=== PATIENT | male | born 1950 | race Caucasian/White ===

== ENCOUNTER → 2018-03-27 14:39 | Outpatient (CLI) | payer MEDICARE, SELFPAY ==
--- NOTE | 2018-03-27 | DI.RAD.S_ITS ---
PROCEDURE: XR WRIST RT MIN 3V INDICATIONS: RT WRIST PAIN, RT GREAT TOE PAIN TECHNIQUE: 3 views of the wrist were acquired. COMPARISON: [facility], , WRIST MINIMUM 3 VIEWS RIGHT, 05/07/2016, 10:11. FINDINGS: Bones: No fractures or dislocations. No suspicious bony lesions. Carpal degeneration. Severe triscaphe joint degeneration. Severe first MCP degenerative joint disease. Soft tissues: No suspicious soft tissue calcifications. IMPRESSION: Diffuse right wrist joint degeneration, grossly unchanged. Dictated by: Damien Sanchez M.D. on 03/27/2018 at 17:10 Approved by: Damien Sanchez M.D. on 03/27/2018 at 17:12
--- NOTE | 2018-03-27 | DI.RAD.S_ITS ---
PROCEDURE: XR TOE RT MIN 2V INDICATIONS: RT WRIST PAIN, RT GREAT TOE PAIN TECHNIQUE: 3 views of the right toe(s) acquired. COMPARISON: None. FINDINGS: Bones: No fractures or dislocations. No suspicious bony lesions. Severe first MTP joint degeneration. Chronic osseous bunion. Overlying soft tissue swelling. There is hallux valgus appearance all weight-bearing views would be more specific. IMPRESSION: Hallux valgus although consider further evaluation with weight bearing views. Severe first MTP joint degeneration. Dictated by: Damien Sanchez M.D. on 03/27/2018 at 17:12 Approved by: Damien Sanchez M.D. on 03/27/2018 at 17:15
== END ==
PROVIDERS: PCP Family Medicine; Visit Provider Family Medicine
DX: M25.531 Pain in right wrist (principal); M79.674 Pain in right toe(s); M19.031 Primary osteoarthritis, right wrist; M19.071 Primary osteoarthritis, right ankle and foot; M21.611 Bunion of right foot
CPT/HCPCS: 73110; 73660

== ENCOUNTER → 2019-03-11 12:40 | Outpatient (CLI) | payer MEDICARE, SELFPAY ==
--- NOTE | 2019-03-11 | DI.RAD.S_ITS ---
PROCEDURE: XR CHEST 2V INDICATIONS: COUGH TECHNIQUE: 2 views of the chest were acquired. COMPARISON: Merged With [facility], , CHEST 2 VIEW, 05/15/2014, 18:23. FINDINGS: Surgical changes and devices: None. Lungs and pleura: Lungs are clear. Minimal retrocardiac streaky opacities unchanged and favored to represent atelectasis. No pleural effusions or pneumothorax. Mediastinum: Mediastinal contours are normal. Heart size is normal. Bones and chest wall: No suspicious bony abnormalities. Soft tissues appear unremarkable. IMPRESSION: No consolidation identified to suggest pneumonia. Dictated by: Davide Palencia M.D. on 03/11/2019 at 14:11 Approved by: Davide Palencia M.D. on 03/11/2019 at 14:13
== END ==
PROVIDERS: PCP Family Medicine; Referring Provider Family Medicine; Visit Provider Family Medicine
DX: R05 Cough (principal)
CPT/HCPCS: 71046

== ENCOUNTER 2019-03-19 06:51 | Day surgery (SDC) | payer MEDICARE, SELFPAY ==
[2019-03-19 07:18] VITALS: BP 163/84; PULSE 58; RESP 16; TEMP 36.6; O2SAT 97; BMI 27.7
[2019-03-19] MEDS: PROPARACAINE 0.5% OPHTH SOL 2 DROPS EYE-OP (07:27)
[2019-03-19] MEDS: CATARACT EYE COMPOUND (10 DROPS/SYRINGE) 3 DROPS EYE-OP (07:33)
--- NOTE | 2019-03-19 08:07 | PM.PREOP ---
Pre-operative Note Interval Note History & Physical reviewed/Exam performed by Physician: No Changes to H&P: No
--- NOTE | 2019-03-19 08:08 | PM.OP.1 ---
Operative Date/Time/Diagnoses Pre-op diagnosis: Nuclear cataract right eye Procedure & Clinicians Procedure: Cataract Surgery Same procedure as scheduled: Yes Surgeon: Jose Du Anesthesia Type: MAC +/- and Sedation Operative Notes Procedure in detail: Patient brought to the operating suite. Tetracaine drops placed in the right eye. Patient was prepped and draped in sterile manner. Wire lid speculum was placed in the eye. Betadine drops were placed on the eye. This was irrigated. Lidocaine jelly was placed on the eye. A paracentesis port was created with a side-port blade. 0.1 mL 1% preservative free lidocaine was injected into the anterior chamber. The anterior chamber was deepened with viscoelastic. 2.6 mm keratome was used to create a temporal clear corneal incision. Cystotome and Utrata forceps were used to create continuous tear capsulorrhexis. Balanced salt solution was used to hydro dissect the nucleus. The phacoemulsification handpiece was inserted and the nucleus was removed using the stop and chop technique. The irrigation aspiration handpiece was inserted and the remaining cortex was removed. Anterior chamber was deepened with viscoelastic. An Church ZCB00 intraocular lens with a power of 24.5 was injected into the capsular bag. Irrigation aspiration handpiece was inserted and the remaining viscoelastic was removed. Incision was hydrated with balanced salt solution and found to be leak free with pressure with Weck-Nadine sponges. 0.1 mL Vigamox injected anterior chamber. 0.3 mL Kenalog 10 mg was injected subconjunctivally. Lid speculum was removed. The patient left the operating room in excellent condition. Complications: none Post-operative Condition: stable Disposition: same day surgery
[2019-03-19] MEDS: MOXIFLOXACIN INJ 5 MG/ML VIAL EYE-OP (08:17)
[2019-03-19] MEDS: LIDOCAINE JELLY 2% 5 ML 1 APPLIC TOP (08:18)
[2019-03-19] MEDS: TRIAMCINOLONE 50 MG/5 ML VIAL INJ (08:18)
[2019-03-19] MEDS: TETRACAINE 0.5% OPHTH DROPS 4 ML 2 DROPS EYE-OP (08:19)
[2019-03-19] MEDS: PHENYLEPHRINE/LIDOCAINE VIAL (OR) 0.2 ML EYE-OP (08:19)
[2019-03-19] MEDS: BALANCED SALT IRRIG SOLN NO.2 500 ML, EPINEPHrine 1 MG IRR (08:20)
[2019-03-19] MEDS: CHONDROIDTIN/SOD HYALURONATE 1.05 ML SYRINGE INTRAOCULA (08:20)
[2019-03-19 08:45] VITALS: BP 150/92; PULSE 54; RESP 16; TEMP 36.7; O2SAT 95
== END 2019-03-19 08:50 | disposition home or self-care (01) ==
PROVIDERS: PCP Family Medicine; Referring Provider Ophthalmology; Visit Provider Ophthalmology
PROC: (CPT 66984; principal; 2019-03-19 08:15)
DX: H25.11 Age-related nuclear cataract, right eye (principal)
CPT/HCPCS: 66984; J0171; J2250; J3010; J3301

== ENCOUNTER 2019-04-02 06:25 | Day surgery (SDC) | payer MEDICARE, SELFPAY ==
[2019-04-02] MEDS: PROPARACAINE 0.5% OPHTH SOL 2 DROPS EYE-OP (07:10)
[2019-04-02] MEDS: CATARACT EYE COMPOUND (10 DROPS/SYRINGE) 3 DROPS EYE-OP (07:15)
[2019-04-02 07:17] VITALS: BP 172/87; PULSE 56; RESP 20; TEMP 36.8; O2SAT 98
--- NOTE | 2019-04-02 07:49 | PM.PREOP ---
Pre-operative Note Interval Note History & Physical reviewed/Exam performed by Physician: Yes Changes to H&P: No
--- NOTE | 2019-04-02 07:49 | PM.OP.1 ---
Operative Date/Time/Diagnoses Pre-op diagnosis: Nuclear Cataract Left eye Post-op diagnosis: same Procedure & Clinicians Same procedure as scheduled: Yes Surgeon: Jose Du Anesthesia Type: MAC +/- and Sedation Operative Notes Procedure in detail: Patient brought to the operating suite. Tetracaine drops placed in the left eye. Patient was prepped and draped in sterile manner. Wire lid speculum was placed in the eye. Betadine drops were placed on the eye. This was irrigated. Lidocaine jelly was placed on the eye. A paracentesis port was created with a side-port blade. 0.1 mL 1% preservative free lidocaine was injected into the anterior chamber. The anterior chamber was deepened with viscoelastic. 2.6 mm keratome was used to create a temporal clear corneal incision. Cystotome and Utrata forceps were used to create continuous tear capsulorrhexis. Balanced salt solution was used to hydro dissect the nucleus. The phacoemulsification handpiece was inserted and the nucleus was removed using the stop and chop technique. The irrigation aspiration handpiece was inserted and the remaining cortex was removed. Anterior chamber was deepened with viscoelastic. An Church ZCB00 intraocular lens with a power of 25.0 was injected into the capsular bag. Irrigation aspiration handpiece was inserted and the remaining viscoelastic was removed. Incision was hydrated with balanced salt solution and found to be leak free with pressure with Weck-Nadine sponges. 0.1 mL Vigamox injected anterior chamber. 0.3 mL Kenalog 10 mg was injected subconjunctivally. Lid speculum was removed. The patient left the operating room in excellent condition. Complications: none Post-operative Condition: stable Disposition: same day surgery
[2019-04-02] MEDS: PHENYLEPHRINE/LIDOCAINE VIAL (OR) 0.2 ML EYE-OP (08:02)
[2019-04-02] MEDS: TRIAMCINOLONE 50 MG/5 ML VIAL INJ (08:02)
[2019-04-02] MEDS: MOXIFLOXACIN INJ 5 MG/ML VIAL EYE-OP (08:02)
[2019-04-02] MEDS: BALANCED SALT IRRIG SOLN NO.2 500 ML, EPINEPHrine 1 MG IRR (08:03)
[2019-04-02] MEDS: CHONDROIDTIN/SOD HYALURONATE 1.05 ML SYRINGE INTRAOCULA (08:03)
[2019-04-02] MEDS: LIDOCAINE JELLY 2% 5 ML 1 APPLIC TOP (08:03)
[2019-04-02] MEDS: TETRACAINE 0.5% OPHTH DROPS 4 ML 2 DROPS EYE-OP (08:03)
[2019-04-02 08:14] VITALS: BP 139/76; PULSE 53; RESP 15; TEMP 36.8; O2SAT 96
== END 2019-04-02 08:30 | disposition home or self-care (01) ==
PROVIDERS: PCP Family Medicine; Referring Provider Ophthalmology; Visit Provider Ophthalmology
PROC: (CPT 66984; principal; 2019-04-02 07:45)
DX: H25.12 Age-related nuclear cataract, left eye (principal)
CPT/HCPCS: 66984; J0171; J2250; J3010; J3301

== ENCOUNTER → 2020-05-09 11:48 | Outpatient (CLI) | payer MEDICARE, SELFPAY ==
[2020-05-09 12:31] LABS: COVID19 -Nasal RAPID Negative (Negative)
== END ==
PROVIDERS: PCP Family Medicine; Visit Provider Physician Assistant
DX: Z20.822 Contact with and (suspected) exposure to COVID-19 (principal)
CPT/HCPCS: 87635; C9803

== ENCOUNTER → 2020-05-11 07:48 | Outpatient (CLI) | payer MEDICARE, SELFPAY ==
--- NOTE | 2020-05-11 | DI.ECHO.S_ITS ---
[facility] +---------+ : : [address] : : : : [id number] : : : : Phone: [phone]+ Echocardiogram Report + + :Name: FRAN CORRIGAN Study Date: 05/11/2020 Height: 70 in : :[facility] ReadingLocation: Weight: 180 lb : : Gender: Male BSA: 2.0 m2 : :: 1950 Age: 69 yrs BP: 159/92 mmHg: :Reason For Study: Hypotension : :Ordering Physician: JAN, : :DEMETRIA Performed By: Lenin Graves : :Referring: DEMETRIA MONTOYA : + + Interpretation Summary Normal left ventricle size with ejection fraction 55-60%. Normal right ventricle and both atria.. Mild mitral regurgitation. Procedure: A two-dimensional transthoracic echocardiogram with color flow and Doppler was performed. The study quality was technically adequate. There is no prior echocardiogram noted for this patient. The patient was in sinus rhythm with heart rates between 48-61 bpm during the exam. Left Ventricle: The left ventricle is normal in size and wall thickness. The ejection fraction is estimated to be 55-60%. There are no focal wall motion abnormalities. Diastolic parameters suggest probable normal left ventricular diastolic function and normal filling pressures. Right Ventricle: The right ventricle is normal in size and function. Atria: Both atria are normal in size. There is no Doppler evidence for an interatrial shunt. Mitral Valve: The mitral valve leaflets appear mildly thickened, but open well. There is mild mitral regurgitation. Aortic Valve: The aortic valve is normal in structure and function. No aortic regurgitation is present. Tricuspid Valve: The tricuspid valve is normal in structure and function. There is trace tricuspid regurgitation. The right ventricular systolic pressure is estimated to be at least 26 mmHg based on an estimated right atrial pressure of 3 mm Hg. Pulmonic Valve: The pulmonic valve is normal in structure and function. There is no pulmonic valvular regurgitation. Great Vessels: The aortic root is normal size. The dimensions of the ascending aorta are normal. The IVC is of normal diameter and collapses greater than 50% with a sniff. This suggests a low right atrial pressure of 3 mm Hg. Pericardium/ Pleura There is no pericardial effusion. There is no pleural effusion. MMode/2D Measurements & Calculations LVIDd: 5.4 cm LVOT diam: 2.1 cm LVIDs: 3.6 cm Ao root diam: 3.0 cm FS: 34.1 % asc Aorta Diam: 3.5 cm IVSd: 0.87 cm LVPWd: 0.87 cm LV santos. diameter/BSA (cm/m^2): 2.7 LV sys. diameter/BSA (cm/m^2): 1.8 LA A2 area: 19.1 cm2 RA long axis: 4.8 cm LA A4 area: 16.9 cm2 RA area: 16.1 cm2 LA length (vol): 4.9 cm RA vol: 45.8 ml LA vol: 56.3 ml RA : 22.9 ml/m2 LA vol index: 28.2 ml/m2 IVC diam: 1.5 cm RVD1 (basal): 3.4 cm Doppler Measurements & Calculations Ao V2 max: 152.8 cm/sec LVOT Max Clifton: 101.5 cm/sec Ao V2 mean: 108.3 cm/sec LV V1 max P.1 mmHg Ao max P.3 mmHg LV V1 VTI: 24.5 cm Ao mean P.2 mmHg NICOLE(I,D): 2.5 cm2 Ao V2 VTI: 35.0 cm NICOLE(V,D): 2.4 cm2 sev ratio: 0.70 NICOLE indexed to BSA (cm^2/m^2): 1.3 MV E max clifton: 75.1 cm/sec TR max clifton: 237.9 cm/sec MV A max clifton: 70.2 cm/sec TR max P.6 mmHg MV E/A: 1.1 PA V2 max: 103.6 cm/sec Med Peak E' Clifton: 7.1 cm/sec PA V2 mean: 71.2 cm/sec E/E' med: 10.6 PA mean P.2 mmHg Lat Peak E' Clifton: 8.0 cm/sec PA pr(Accel): 25.0 mmHg E/E' lat: 9.4 E/e' average: 10.0 MV dec time: 0.20 sec SV(LVOT): 88.6 ml Electronically signed by: Kevin Mancia on Reading Physician:05/12/2020 08:08 AM
--- NOTE | 2020-05-11 | DI.NM.S_ITS ---
PROCEDURE: NM ANDRE PERF SPECT REST & STR Rest and exercise myocardial perfusion SPECT with gated imaging and ejection fraction RADIOPHARMACEUTICAL: 11.8 mCi Tc-99m sestamibi IV at rest and 26.7 mCi Tc-99m sestamibi IV at peak exercise. A one day-protocol was performed. INDICATIONS: Hypotension, Dizzy, Chest pain TECHNIQUE: Radiopharmaceutical was injected at peak stress test, and also at rest. SPECT images were obtained. SPECT myocardial perfusion images were displayed in short axis, horizontal long axis, and vertical long axis views. Gated images were reviewed using [employer] software. COMPARISON: None. CARDIAC STRESS: A standard Henri treadmill exercise tolerance test was performed by the patient under the supervision of an attending staff. The patient exercised for 9 minutes and 30 seconds; functional aerobic impairment (KARAN) is -27%. Hemodynamic data: There is normal blood pressure and heart rate response to exercise stress. Patient achieved 101% of maximum predicted heart rate at peak exercise. Symptoms: Patient had 3/10 chest pain during peak exercise that resolves during early recovery. EKG: Mild to moderate downsloping ST depressions in the inferior and anterolateral leads that are consistent with ischemia . Rare PVCs present. FINDINGS: Raw data: There is good myocardial labeling by radiotracer. No significant motion artifacts. Penb-ir-hzegf ratio is 0.37 (normal is less than 0.38 for sestamibi tracer, and less than 0.50 for thallium tracer). Left ventricle function: Gated images demonstrate normal left ventricle wall thickening. No segmental wall motion abnormality. No transient ischemic dilation; TID is 1.05 (normal less than 1.3). The left ventricle resting end-diastolic volume is 151 mL. Left ventricle stress ejection fraction is 64%; normal values are above 45%. Myocardial perfusion: Fixed inferior wall defect that resolves with prone imaging, suggesting artifact than true ischemia or infarction. Fixed apical defect that improves significant with prone imaging, suggesting probable ischemia but prior small non-transmural infarction can'be excluded. IMPRESSION: Abnormal treadmill nuclear stress test given angina and ischemic ECG changes. Perfusion images probably normal. 1) Fixed inferior wall defect that resolves with prone imaging, suggesting artifact than true ischemia or infarction. Fixed apical defect that improves significant with prone imaging, suggesting probable ischemia but prior small non-transmural infarction can'be excluded. 2) Mildly enlarged left ventricle (resting EDV 151cc) with normal, wall motion, and normal systolic function (EF post stress 64%). 3) Mild to moderate downsloping ST depressions in the inferior and anterolateral leads that are consistent with ischemia. 4) Angina suspected with exercise. 3/10 chest pain during peak exercise that resolves during early recovery. 5) Good exercise tolerance (10.1 METs, KARAN -27%). Target heart rate achieved. Appropriate BP response to exercise. 6) No prior nuclear stress test available for comparison. Recommend cardiology consultation for clinical assessment and correlation with nuclear stress test. Dictated by: Conor Murcia MD on 05/12/2020 at 12:56 Approved by: Conor Murcia MD on 05/12/2020 at 13:03
== END ==
PROVIDERS: PCP Family Medicine; Referring Provider Family Medicine; Visit Provider Family Medicine
DX: I95.9 Hypotension, unspecified (principal); R42 Dizziness and giddiness; R07.9 Chest pain, unspecified; I34.0 Nonrheumatic mitral (valve) insufficiency; I51.7 Cardiomegaly
CPT/HCPCS: 78452; 93017; 93306; A9502

== ENCOUNTER → 2020-07-28 15:29 | Outpatient (CLI) | payer MEDICARE, SELFPAY ==
[2020-07-28 17:04] LABS: COVID19 -Nasal RAPID Negative (Negative)
== END ==
PROVIDERS: PCP Family Medicine; Visit Provider Physician Assistant
DX: Z20.822 Contact with and (suspected) exposure to COVID-19 (principal)
CPT/HCPCS: 87635

== ENCOUNTER 2020-10-31 07:34 | Emergency (ER) | payer MEDICARE, SELFPAY ==
[2020-10-31] VITALS (122 sets, daily range): BP systolic 120–191; BP diastolic 60–90; PULSE 49–70; RESP 11–37; TEMP 36.4; O2SAT 94–100
--- NOTE | 2020-10-31 07:52 | DI.RAD.S_ITS ---
PROCEDURE: XR CHEST 1V INDICATIONS: chest pain TECHNIQUE: One view of the chest was acquired. COMPARISON: [facility], CHEST 2 VIEW, 05/15/2014, 18:23. [facility], CHEST 2 VIEW, 05/13/2014, 6:11. [facility], XR CHEST 2V, 03/11/2019, 12:43. FINDINGS: Surgical changes and devices: None. Lungs and pleura: Lungs are clear. No pleural effusions or pneumothorax. Mediastinum: Mediastinal contours appear normal. Heart size is normal. Bones and chest wall: No suspicious bony lesions. Age-appropriate bony degenerative changes are seen. Overlying soft tissues appear unremarkable. IMPRESSION: Normal portable chest for age. Dictated by: James Jewell M.D. on 10/31/2020 at 7:25 Approved by: James Jewell M.D. on 10/31/2020 at 7:26
--- NOTE | 2020-10-31 07:54 | ED_ITS ---
HPI - Chest Pain <Ro Cornelio, DO - Last Filed: 11/01/20 07:46> General Chief Complaint: Chest Pain Stated Complaint: might have had a heart attack this morning Time Seen by Provider: 10/31/20 07:44 Source: patient and family Mode of arrival: Ambulatory Limitations: no limitations History of Present Illness HPI narrative: Male with history of mild coronary artery disease no stent or pre vious [place] presenting today with chest discomfort. He said he woke up abruptly at 4:15 a.m. this morning with bilateral arm pain chest pains sweating and shortness of breath. He took a nitroglycerin which resolved his pain and he went back to sleep. He woke up again around 7:00 a.m. and then started having symptoms again of arm pain and chest pain he took a 2nd nitro they went away and he came to the emergency department. He is now symptom free. It appears that he had myocardial perfusion scan 05/11/2020 which had mild to moderate downsloping ST depressions in inferior and anterior lateral leads. He then actually had a cardiac catheterization at [facility]. Per patient reports that he had some flattening of his arteries and some mild atherosclerotic disease. He was put on isosorbide, statin and given nitroglycerin as needed. Related Data Home Medications Medication Instructions Recorded Confirmed diclofenac sodium 100 mg 100 mg PO BID PRN 03/19/19 10/31/20 tablet,extended release 24 hr (Voltaren-XR) omeprazole 40 mg capsule,delayed 40 mg PO QAM 03/19/19 10/31/20 release Lactobacillus 2 cap PO DAILY 10/31/20 10/31/20 acidophilus-Bifidobac.animalis 10 billion cell capsule (Digestive Probiotic) amino ac-vit A-Bo-bhshyqcc-hb9 1 tab PO QAM 10/31/20 10/31/20 tablet ascorbic acid 1,000 1 ea PO QAM 10/31/20 10/31/20 ia-azarfbvakkju-gedghuhs powder effervescent pack (Emergen-C) aspirin 81 mg tablet 81 mg PO QAM 10/31/20 10/31/20 docosahexaenoic acid (dha)-epa 1 cap PO DAILY 10/31/20 10/31/20 capsule folic acid 800 mcg tablet 0.8 mg PO QAM 10/31/20 10/31/20 ginkgo biloba 40 mg tablet 40 mg PO QAM 10/31/20 10/31/20 glucosamine sulf dipot 1 cap PO QAM 10/31/20 10/31/20 chlr,msm,chond 550 mg-C 30 mg-savita 1 mg capsule (Glucosamine Chondroitin) isosorbide mononitrate 60 mg 60 mg PO QAM 10/31/20 10/31/20 tablet,extended release 24 hr magnesium 200 mg tablet 400 mg PO QAM 10/31/20 10/31/20 multivitamin with minerals 1 tab PO QAM 10/31/20 10/31/20 nitroglycerin 0.4 mg sublingual 0.4 mg SUBLINGUAL TID PRN 10/31/20 10/31/20 tablet rosuvastatin 20 mg tablet 20 mg PO BEDTIME 10/31/20 10/31/20 Allergies Allergy/AdvReac Type Severity Reaction Status Date / Time No Known Drug Allergies Allergy Verified 10/31/20 07:51 Review of Systems <DO Beatris Soria Last Filed: 11/01/20 07:46> Review of Systems Narrative: GENERAL: Denies chills, fatigue, malaise, fever, sweats, travel HEENT: Denies sinus pain, ear pain, sore throat, difficulty swallowing, neck pain RESPIRATORY: Denies dyspnea, cough, wheezing, hemoptysis, sputum. CARDIOVASCULAR: See HPI GASTROINTESTINAL: Denies nausea, vomiting, abdominal pain, diarrhea, constipation, melena. : Denies dysuria, frequency, incontinence, hematuria, urinary retention, flank pain. MUSCULOSKELETAL: Denies weakness, joint pain, or bony pain SKIN: No rash, no erythema, no pruritus NEUROLOGIC: Denies weakness, dizziness, headache, numbness, change in speech, confusion PSYCHIATRIC: No concerning psychosocial issues. 12 point review of systems is negative except for those stated above and HPI Patient History <DO Beatris Soria Last Filed: 11/01/20 07:46> Social History household members: spouse Smoking Status: Never smoker alcohol intake: current Smoking Status: Never smoker alcohol intake frequency: a few times a week Substance Use Type: does not use Exam <DO Beatris Soria Last Filed: 11/01/20 07:46> Initial Vital Signs Initial Vital Signs: Vital Signs Pulse Rate 62 10/31/20 07:44 Respiratory Rate 16 10/31/20 07:44 Pulse Oximetry 99 10/31/20 07:44 GENERAL: Alert pleasant 70-year-old maleand in no acute distress. HEENT: Head atraumatic,EOMI, pupils reactive, face symmetric, moist mucous membranes CARDIOVASCULAR: Regular rate and rhythm without murmurs, rubs or gallops. RESPIRATORY: Breath sounds equal bilaterally, no wheezes rales or rhonchi. ABDOMEN: Soft, nontender. Normoactive bowel sounds all 4 quadrants. No guarding or rebound. EXTREMITIES: Normal range of motion, no clubbing or edema. Neurovascularly intact NEUROLOGICAL: Alert and oriented x4.Normal gait and speech. SKIN: Warm, dry, no laceration, no petechiae, no rashes or lesions. <Isabel Gamez MD - Last Filed: 11/01/20 02:55> Initial Vital Signs Initial Vital Signs: Vital Signs Pulse Rate 62 10/31/20 07:44 Respiratory Rate 16 10/31/20 07:44 Pulse Oximetry 99 10/31/20 07:44 Course <Ro Grimes DO - Last Filed: 11/01/20 07:46> Orders Ordered: Discontinued Medications Aspirin (Aspirin 81 Mg Chew Tab) 324 mg PO NOW ONE Stop: 10/31/20 07:53 Last Admin: 10/31/20 08:06 Dose: 324 mg Documented by: JUN Atorvastatin Calcium (Atorvastatin 20 Mg Tablet) 80 mg PO NOW ONE Stop: 10/31/20 10:11 Last Admin: 10/31/20 10:22 Dose: 80 mg Documented by: HUI Heparin Sodium (Porcine) (Heparin 5,000 Unit/Ml Vial) 5,000 unit IV NOW ONE Stop: 10/31/20 08:54 Last Admin: 10/31/20 09:09 Dose: 5,000 unit Documented by: HUI Heparin Sodium/Dextrose (Heparin Drip) 25,000 unit in 500 mls @ 20 mls/hr IV CONT MARCE; Protocol Last Titration: 10/31/20 20:15 Dose: 0 units/hr, 0 mls/hr Documented by: Titration: 10/31/20 16:53 Dose: 850 units/hr, 17 mls/hr Documented by: Titration: 10/31/20 15:53 Dose: 0 units/hr, 0 mls/hr Documented by: Admin: 10/31/20 09:10 Dose: 1,000 units/hr, 20 mls/hr Documented by: HUI Nitroglycerin (Nitroglycerin) 50 mg in 250 mls @ 1.5 mls/hr IV TITRATE MARCE; Protocol Last Titration: 10/31/20 20:15 Dose: 0 mcg/min, 0 mls/hr Documented by: Titration: 10/31/20 19:48 Dose: 10 mcg/min, 3 mls/hr Documented by: Titration: 10/31/20 16:45 Dose: 7.5 mcg/min, 2.25 mls/hr Documented by: Admin: 10/31/20 09:35 Dose: 5 mcg/min, 1.5 mls/hr Documented by: HUI Metoprolol Tartrate (Metoprolol Ir 25 Mg Tablet) 25 mg PO NOW ONE Stop: 10/31/20 10:11 Last Admin: 10/31/20 10:22 Dose: 25 mg Documented by: HUI Morphine Sulfate (Morphine 2 Mg/Ml Inj) 2 mg IV NOW ONE Stop: 10/31/20 19:58 Last Admin: 10/31/20 20:10 Dose: Not Given Documented by: JASON Nitroglycerin (Nitroglycerin 0.4 Mg Sl Tab) 0.4 mg SL [id number] PRN PRN Reason: Chest Pain Last Admin: 10/31/20 09:25 Dose: 0.4 mg Documented by: HUI Vital Signs Vital signs: Vital Signs - 8 hr 10/31/20 19:00 10/31/20 19:15 10/31/20 19:16 Pulse Rate 56 L 56 L Respiratory Rate 22 18 Blood Pressure 139/84 144/87 H Pulse Oximetry 96 97 10/31/20 19:31 Pulse Rate 55 L Respiratory Rate 24 Blood Pressure 147/90 H Pulse Oximetry 97 <Isabel Gamez MD - Last Filed: 11/01/20 02:55> Course Course Narrative: Dr Gamez 755pm transport is here. On arrival patient's pain was 0-1. In standing up and moving to the stretcher he began having more pain continues to increase now is up to 6/10. Nitro is being increased EKG is repeated morphine is added. He is now diaphoretic clutching his central chest. Repeat EKG shows sinus bradycardia 57. There are no new ischemic changes. Without additional intervention his pain return to 0-1 within 5 minutes of transferring to the stretcher. Continues on nitro drip heparin drip. Okay is given to continue with current transport. Orders Ordered: Discontinued Medications Aspirin (Aspirin 81 Mg Chew Tab) 324 mg PO NOW ONE Stop: 10/31/20 07:53 Last Admin: 10/31/20 08:06 Dose: 324 mg Documented by: JUN Atorvastatin Calcium (Atorvastatin 20 Mg Tablet) 80 mg PO NOW ONE Stop: 10/31/20 10:11 Last Admin: 10/31/20 10:22 Dose: 80 mg Documented by: HUI Heparin Sodium (Porcine) (Heparin 5,000 Unit/Ml Vial) 5,000 unit IV NOW ONE Stop: 10/31/20 08:54 Last Admin: 10/31/20 09:09 Dose: 5,000 unit Documented by: HUI Heparin Sodium/Dextrose (Heparin Drip) 25,000 unit in 500 mls @ 20 mls/hr IV CONT MARCE; Protocol Last Titration: 10/31/20 20:15 Dose: 0 units/hr, 0 mls/hr Documented by: Titration: 10/31/20 16:53 Dose: 850 units/hr, 17 mls/hr Documented by: Titration: 10/31/20 15:53 Dose: 0 units/hr, 0 mls/hr Documented by: Admin: 10/31/20 09:10 Dose: 1,000 units/hr, 20 mls/hr Documented by: HUI Nitroglycerin (Nitroglycerin) 50 mg in 250 mls @ 1.5 mls/hr IV TITRATE MARCE; Protocol Last Titration: 10/31/20 20:15 Dose: 0 mcg/min, 0 mls/hr Documented by: Titration: 10/31/20 19:48 Dose: 10 mcg/min, 3 mls/hr Documented by: Titration: 10/31/20 16:45 Dose: 7.5 mcg/min, 2.25 mls/hr Documented by: Admin: 10/31/20 09:35 Dose: 5 mcg/min, 1.5 mls/hr Documented by: HUI Metoprolol Tartrate (Metoprolol Ir 25 Mg Tablet) 25 mg PO NOW ONE Stop: 10/31/20 10:11 Last Admin: 10/31/20 10:22 Dose: 25 mg Documented by: HUI Morphine Sulfate (Morphine 2 Mg/Ml Inj) 2 mg IV NOW ONE Stop: 10/31/20 19:58 Last Admin: 10/31/20 20:10 Dose: Not Given Documented by: BETOYLCONSTANTINE Nitroglycerin (Nitroglycerin 0.4 Mg Sl Tab) 0.4 mg SL [id number] PRN PRN Reason: Chest Pain Last Admin: 10/31/20 09:25 Dose: 0.4 mg Documented by: HUI Vital Signs Vital signs: Vital Signs - 8 hr 10/31/20 19:00 10/31/20 19:15 10/31/20 19:16 Pulse Rate 56 L 56 L Respiratory Rate 22 18 Blood Pressure 139/84 144/87 H Pulse Oximetry 96 97 10/31/20 19:31 Pulse Rate 55 L Respiratory Rate 24 Blood Pressure 147/90 H Pulse Oximetry 97 MDM - Chest Pain <Ro Grimes, - Last Filed: 11/01/20 07:46> Lab Data Result diagrams: 10/31/20 08:00 10/31/20 08:00 Labs: Lab Results 10/31/20 10/31/20 10/31/20 Range/Units 08:00 08:00 08:00 WBC 7.9 (4.5-11.0) X10^3/uL RBC 5.58 (4.5-5.9) X10^6/uL Hgb 16.4 (13.5-17.5) g/dL Hct 49.4 (41-53) % MCV 88.5 (80-100) fL MCH 29.3 (26-34) PG MCHC 33.1 (30-36) % RDW 15.2 H (11.6-14.8) % Plt Count 251 (150-400) X10^3/uL Neut % (Auto) 75.4 H (50-75) % Lymph % (Auto) 15.5 L (25-40) % [place] % (Auto) 7.9 (3-14) % Eos % (Auto) 0.8 L (2-4) % Baso % (Auto) 0.4 (0-2) % Neut # (Auto) 6000 (0065-4070) /uL Lymph # (Auto) 1200 (5625-0375) /uL [place] # (Auto) 600 (0-900) /uL Eos # (Auto) 100 (0-450) /uL Baso # (Auto) 0 (0-100) /uL PT 10.9 (10.1-12.7) SECONDS INR 1.0 (0.9-1.3) APTT 37 H (26.4-36.2) SECONDS Sodium 140 (137-145) mmol/L Potassium 4.5 (3.4-5.1) mmol/L Chloride 105 (98-107) mmol/L Carbon Dioxide 27 (22-32) mmol/L BUN 24 H (9-20) mg/dL Creatinine 0.93 (0.66-1.25) mg/dL Estimated GFR > 60.0 (>60) mL/min BUN/Creatinine Ratio 25.8 H (6-22) Glucose 99 (80-110) mg/dL Calcium 9.6 (8.4-10.2) mg/dL Magnesium 2.1 (1.6-2.3) mg/dL Total Bilirubin 1.0 (0.2-1.3) mg/dL AST 41 (17-59) IU/L ALT 60 H (<50) IU/L Alkaline Phosphatase 64 (38-126) U/L Total Creatine Kinase 90 (55-170) U/L CK-MB (CK-2) TNP CK-MB (CK-2) Rel Index TNP Troponin I 0.135 H* (0.01-0.034) ng/mL NT-Pro-B Natriuret Pep 56 (<125) pg/mL Total Protein 8.2 (6.3-8.2) g/dL Albumin 5.1 H (3.5-5.0) g/dL Globulin 3.1 (1.7-4.1) g/dL Albumin/Globulin Ratio 1.6 (1.0-2.8) Lipase 62 (23-300) U/L SARS-CoV-2 (PCR) (Negative) 10/31/20 10/31/20 10/31/20 Range/Units 08:05 09:52 14:57 WBC (4.5-11.0) X10^3/uL RBC (4.5-5.9) X10^6/uL Hgb (13.5-17.5) g/dL Hct (41-53) % MCV (80-100) fL MCH (26-34) PG MCHC (30-36) % RDW (11.6-14.8) % Plt Count (150-400) X10^3/uL Neut % (Auto) (50-75) % Lymph % (Auto) (25-40) % [place] % (Auto) (3-14) % Eos % (Auto) (2-4) % Baso % (Auto) (0-2) % Neut # (Auto) (2133-3002) /uL Lymph # (Auto) (8554-6902) /uL [place] # (Auto) (0-900) /uL Eos # (Auto) (0-450) /uL Baso # (Auto) (0-100) /uL PT (10.1-12.7) SECONDS INR (0.9-1.3) APTT 149 H* D (26.4-36.2) SECONDS Sodium (137-145) mmol/L Potassium (3.4-5.1) mmol/L Chloride (98-107) mmol/L Carbon Dioxide (22-32) mmol/L BUN (9-20) mg/dL Creatinine (0.66-1.25) mg/dL Estimated GFR (>60) mL/min BUN/Creatinine Ratio (6-22) Glucose (80-110) mg/dL Calcium (8.4-10.2) mg/dL Magnesium (1.6-2.3) mg/dL Total Bilirubin (0.2-1.3) mg/dL AST (17-59) IU/L ALT (<50) IU/L Alkaline Phosphatase (38-126) U/L Total Creatine Kinase (55-170) U/L CK-MB (CK-2) CK-MB (CK-2) Rel Index Troponin I 0.178 H* (0.01-0.034) ng/mL NT-Pro-B Natriuret Pep (<125) pg/mL Total Protein (6.3-8.2) g/dL Albumin (3.5-5.0) g/dL Globulin (1.7-4.1) g/dL Albumin/Globulin Ratio (1.0-2.8) Lipase (23-300) U/L SARS-CoV-2 (PCR) Negative (Negative) 10/31/20 Range/Units 14:57 WBC (4.5-11.0) X10^3/uL RBC (4.5-5.9) X10^6/uL Hgb (13.5-17.5) g/dL Hct (41-53) % MCV (80-100) fL MCH (26-34) PG MCHC (30-36) % RDW (11.6-14.8) % Plt Count (150-400) X10^3/uL Neut % (Auto) (50-75) % Lymph % (Auto) (25-40) % [place] % (Auto) (3-14) % Eos % (Auto) (2-4) % Baso % (Auto) (0-2) % Neut # (Auto) (4365-0979) /uL Lymph # (Auto) (7034-5912) /uL [place] # (Auto) (0-900) /uL Eos # (Auto) (0-450) /uL Baso # (Auto) (0-100) /uL PT (10.1-12.7) SECONDS INR (0.9-1.3) APTT (26.4-36.2) SECONDS Sodium (137-145) mmol/L Potassium (3.4-5.1) mmol/L Chloride (98-107) mmol/L Carbon Dioxide (22-32) mmol/L BUN (9-20) mg/dL Creatinine (0.66-1.25) mg/dL Estimated GFR (>60) mL/min BUN/Creatinine Ratio (6-22) Glucose (80-110) mg/dL Calcium (8.4-10.2) mg/dL Magnesium (1.6-2.3) mg/dL Total Bilirubin (0.2-1.3) mg/dL AST (17-59) IU/L ALT (<50) IU/L Alkaline Phosphatase (38-126) U/L Total Creatine Kinase (55-170) U/L CK-MB (CK-2) CK-MB (CK-2) Rel Index Troponin I 0.265 H* (0.01-0.034) ng/mL NT-Pro-B Natriuret Pep (<125) pg/mL Total Protein (6.3-8.2) g/dL Albumin (3.5-5.0) g/dL Globulin (1.7-4.1) g/dL Albumin/Globulin Ratio (1.0-2.8) Lipase (23-300) U/L SARS-CoV-2 (PCR) (Negative) Imaging Data Chest x-ray: Radiologist's Impression: PROCEDURE:? XR CHEST 1V ? INDICATIONS:? chest pain ? TECHNIQUE:? One view of the chest was acquired.? ? COMPARISON:? [facility], , CHEST 2 VIEW, 05/15/2014, 18:23.? [facility], , CHEST 2 VIEW, 05/13/2014, 6:11.? [facility], , XR CHEST 2V, 03/11/2019, 12:43. ? FINDINGS:? ? Surgical changes and devices:? None.? ? Lungs and pleura:? Lungs are clear.? No pleural effusions or pneumothorax.? ? Mediastinum:? Mediastinal contours appear normal.? Heart size is normal.? ? Bones and chest wall:? No suspicious bony lesions.? Age-appropriate bony degenerative changes are seen.? Overlying soft tissues appear unremarkable.? IMPRESSION:? Normal portable chest for age. ? ? Dictated by: James Jewell M.D. on 10/31/2020 at 7:25? ECG Data Interpretation: EKG 1. Normal sinus rhythm rate 63 NH interval 178 QRS 100 QTC 425 ft T-waves V2 through V5 no very minimal Q-wave noted in lateral leads similar to previous EKG 05/15/2014 EKG 2. Sinus rhythm rate 58 no changes from prior EKG 3. Sinus rhythm rate [address] changes EKG 4. Normal sinus rhythm rate 57 no changes Right-sided EKG no ST elevation in V4 sinus rhythm EKG 5. Sinus rhythm rate [address] changes MDM Narrative Medical decision making narrative: 70 male symptoms certainly concerning for acute coronary syndrome, no changes on initial EKGs. Troponin is positive 0.13, cutoff is 0.12. Started having chest pain he was given nitroglycerin and started on a nitro drip and heparin drip. He was also given aspirin as statin and beta-hany. Repeat troponin increased to 0.17. He continue to be chest pain free. Due to severe bed shortage difficult sign bed he was placed on multiple he lists. 1400- Dr. Huang cardiology at [place] updated patient's symptoms test results happy to accept patient however no beds available but patient is placed on waiting list [id number] Dr. Cordero, hospitalist at [place] updated patient's symptoms test results and happily accepts patient. Patient started having chest pain again repeat EKG does not show any changes nitro drip is titrated up <Isabel Gamez MD - Last Filed: 11/01/20 02:55> Lab Data Labs: Lab Results 10/31/20 10/31/20 10/31/20 Range/Units 08:00 08:00 08:00 WBC 7.9 (4.5-11.0) X10^3/uL RBC 5.58 (4.5-5.9) X10^6/uL Hgb 16.4 (13.5-17.5) g/dL Hct 49.4 (41-53) % MCV 88.5 (80-100) fL MCH 29.3 (26-34) PG MCHC 33.1 (30-36) % RDW 15.2 H (11.6-14.8) % Plt Count 251 (150-400) X10^3/uL Neut % (Auto) 75.4 H (50-75) % Lymph % (Auto) 15.5 L (25-40) % [place] % (Auto) 7.9 (3-14) % Eos % (Auto) 0.8 L (2-4) % Baso % (Auto) 0.4 (0-2) % Neut # (Auto) 6000 (4121-6514) /uL Lymph # (Auto) 1200 (9950-6278) /uL [place] # (Auto) 600 (0-900) /uL Eos # (Auto) 100 (0-450) /uL Baso # (Auto) 0 (0-100) /uL PT 10.9 (10.1-12.7) SECONDS INR 1.0 (0.9-1.3) APTT 37 H (26.4-36.2) SECONDS Sodium 140 (137-145) mmol/L Potassium 4.5 (3.4-5.1) mmol/L Chloride 105 (98-107) mmol/L Carbon Dioxide 27 (22-32) mmol/L BUN 24 H (9-20) mg/dL Creatinine 0.93 (0.66-1.25) mg/dL Estimated GFR > 60.0 (>60) mL/min BUN/Creatinine Ratio 25.8 H (6-22) Glucose 99 (80-110) mg/dL Calcium 9.6 (8.4-10.2) mg/dL Magnesium 2.1 (1.6-2.3) mg/dL Total Bilirubin 1.0 (0.2-1.3) mg/dL AST 41 (17-59) IU/L ALT 60 H (<50) IU/L Alkaline Phosphatase 64 (38-126) U/L Total Creatine Kinase 90 (55-170) U/L CK-MB (CK-2) TNP CK-MB (CK-2) Rel Index TNP Troponin I 0.135 H* (0.01-0.034) ng/mL NT-Pro-B Natriuret Pep 56 (<125) pg/mL Total Protein 8.2 (6.3-8.2) g/dL Albumin 5.1 H (3.5-5.0) g/dL Globulin 3.1 (1.7-4.1) g/dL Albumin/Globulin Ratio 1.6 (1.0-2.8) Lipase 62 (23-300) U/L SARS-CoV-2 (PCR) (Negative) 10/31/20 10/31/20 10/31/20 Range/Units 08:05 09:52 14:57 WBC (4.5-11.0) X10^3/uL RBC (4.5-5.9) X10^6/uL Hgb (13.5-17.5) g/dL Hct (41-53) % MCV (80-100) fL MCH (26-34) PG MCHC (30-36) % RDW (11.6-14.8) % Plt Count (150-400) X10^3/uL Neut % (Auto) (50-75) % Lymph % (Auto) (25-40) % [place] % (Auto) (3-14) % Eos % (Auto) (2-4) % Baso % (Auto) (0-2) % Neut # (Auto) (9776-1663) /uL Lymph # (Auto) (5702-5679) /uL [place] # (Auto) (0-900) /uL Eos # (Auto) (0-450) /uL Baso # (Auto) (0-100) /uL PT (10.1-12.7) SECONDS INR (0.9-1.3) APTT 149 H* D (26.4-36.2) SECONDS Sodium (137-145) mmol/L Potassium (3.4-5.1) mmol/L Chloride (98-107) mmol/L Carbon Dioxide (22-32) mmol/L BUN (9-20) mg/dL Creatinine (0.66-1.25) mg/dL Estimated GFR (>60) mL/min BUN/Creatinine Ratio (6-22) Glucose (80-110) mg/dL Calcium (8.4-10.2) mg/dL Magnesium (1.6-2.3) mg/dL Total Bilirubin (0.2-1.3) mg/dL AST (17-59) IU/L ALT (<50) IU/L Alkaline Phosphatase (38-126) U/L Total Creatine Kinase (55-170) U/L CK-MB (CK-2) CK-MB (CK-2) Rel Index Troponin I 0.178 H* (0.01-0.034) ng/mL NT-Pro-B Natriuret Pep (<125) pg/mL Total Protein (6.3-8.2) g/dL Albumin (3.5-5.0) g/dL Globulin (1.7-4.1) g/dL Albumin/Globulin Ratio (1.0-2.8) Lipase (23-300) U/L SARS-CoV-2 (PCR) Negative (Negative) 10/31/20 Range/Units 14:57 WBC (4.5-11.0) X10^3/uL RBC (4.5-5.9) X10^6/uL Hgb (13.5-17.5) g/dL Hct (41-53) % MCV (80-100) fL MCH (26-34) PG MCHC (30-36) % RDW (11.6-14.8) % Plt Count (150-400) X10^3/uL Neut % (Auto) (50-75) % Lymph % (Auto) (25-40) % [place] % (Auto) (3-14) % Eos % (Auto) (2-4) % Baso % (Auto) (0-2) % Neut # (Auto) (3714-0484) /uL Lymph # (Auto) (0881-7209) /uL [place] # (Auto) (0-900) /uL Eos # (Auto) (0-450) /uL Baso # (Auto) (0-100) /uL PT (10.1-12.7) SECONDS INR (0.9-1.3) APTT (26.4-36.2) SECONDS Sodium (137-145) mmol/L Potassium (3.4-5.1) mmol/L Chloride (98-107) mmol/L Carbon Dioxide (22-32) mmol/L BUN (9-20) mg/dL Creatinine (0.66-1.25) mg/dL Estimated GFR (>60) mL/min BUN/Creatinine Ratio (6-22) Glucose (80-110) mg/dL Calcium (8.4-10.2) mg/dL Magnesium (1.6-2.3) mg/dL Total Bilirubin (0.2-1.3) mg/dL AST (17-59) IU/L ALT (<50) IU/L Alkaline Phosphatase (38-126) U/L Total Creatine Kinase (55-170) U/L CK-MB (CK-2) CK-MB (CK-2) Rel Index Troponin I 0.265 H* (0.01-0.034) ng/mL NT-Pro-B Natriuret Pep (<125) pg/mL Total Protein (6.3-8.2) g/dL Albumin (3.5-5.0) g/dL Globulin (1.7-4.1) g/dL Albumin/Globulin Ratio (1.0-2.8) Lipase (23-300) U/L SARS-CoV-2 (PCR) (Negative) Critical Care Time <Ro Grimes DO - Last Filed: 11/01/20 07:46> Critical Care Time Critical Care Time: Yes Total Critical Care Time: 45 Attestation: The high probability of a clinically significant, sudden or life threatening deterioration of the [cardiovascular] system(s) required my full and direct attention, intervention and personal management. The aggregate critical care time was [45] minutes. This time is in addition to time spent performing reported procedures but includes the following: [x] Data Review and interpretation [x] Patient assessment and monitoring of vital signs [x] Documentation [x] Medication orders and management Discharge Plan Departure Patient Disposition: [facility] Clinical Impression: Acute non-ST elevation myocardial infarction (NSTEMI) Prescriptions: No Action diclofenac sodium [Voltaren-XR] 100 mg Tablet Extended Release 24 Hr 100 mg PO BID PRN (Reason: Pain (Scale Score 4-6)) RF: 0 omeprazole 40 mg Capsule,Delayed Release(Dr/Ec) 40 mg PO QAM RF: 0 isosorbide mononitrate 60 mg tablet extended release 24 hr 60 mg PO QAM RF: 0 ginkgo biloba [Ginkoba] 40 mg Tablet 40 mg PO QAM RF: 0 nitroglycerin 0.4 mg tablet, sublingual 0.4 mg sublingual TID PRN (Reason: Chest Pain) RF: 0 Adult Low Dose Aspirin 81 mg Tablet 81 mg PO QAM RF: 0 multivitamin with minerals [All Purpose Multivitamin-Min] Tablet 1 tab PO QAM RF: 0 folic acid 800 mcg Tablet 0.8 mg PO QAM RF: 0 magnesium [magnesium gluconate] 200 mg Tablet 400 mg PO QAM RF: 0 EPA Fish Oil Capsule 1 cap PO DAILY RF: 0 rosuvastatin 20 mg tablet 20 mg PO BEDTIME RF: 0 Prostate Formula Tablet 1 tab PO QAM RF: 0 Emergen-C 1,000 mg Powder Effervescent In Packet 1 ea PO QAM RF: 0 Digestive Probiotic 10 billion cell Capsule 2 cap PO DAILY RF: 0 Glucosamine Chondroitin 550-30-1 mg Capsule 1 cap PO QAM RF: 0 Referrals: Kalyn Gifford MD [Primary Care Provider] -
[2020-10-31] MEDS: ASPIRIN 81 MG CHEW TAB 324 MG PO (08:06)
[2020-10-31 08:23] LABS: Prothrombin Time 10.9 SECONDS (10.1-12.7)
[2020-10-31 08:24] LABS: Add Manual Diff / Slide Review NO; Basophils Absolute Auto 0 /uL (0-100); Basophils Percent Auto 0.4 % (0-2); Eosinophils Absolute Auto 100 /uL (0-450); Eosinophils Percent Auto 0.8 % (2-4); Hematocrit 49.4 % (41-53); Hemoglobin 16.4 g/dL (13.5-17.5); Lymphocytes Absolute Auto 1200 /uL (1100-4500); Lymphocytes Percent Auto 15.5 % (25-40); Mean Corpuscular HGB Conc 33.1 % (30-36); Mean Corpuscular Hemoglobin 29.3 PG (26-34); Mean Corpuscular Volume 88.5 fL (80-100); Monocytes Absolute Auto 600 /uL (0-900); Monocytes Percent Auto 7.9 % (3-14); Neutrophils Absolute Auto 6000 /uL (1500-7000); Neutrophils Percent Auto 75.4 % (50-75); Platelet Count 251 X10^3/uL (150-400); Red Blood Cell Count 5.58 X10^6/uL (4.5-5.9); Red Cell Distribution Width 15.2 % (11.6-14.8); White Blood Cell Count 7.9 X10^3/uL (4.5-11.0)
[2020-10-31 08:25] LABS: PTT Partial Thromboplastin Tim 37 SECONDS (26.4-36.2)
[2020-10-31 08:27] LABS: Alanine Aminotransferase 60 IU/L (<50); Albumin 5.1 g/dL (3.5-5.0); Albumin Globulin Ratio 1.6 (1.0-2.8); Alkaline Phosphatase 64 U/L (38-126); Aspartate Aminotransferase 41 IU/L (17-59); BUN Creatinine Ratio 25.8 (6-22); Blood Urea Nitrogen 24 mg/dL (9-20); Calcium 9.6 mg/dL (8.4-10.2); Carbon Dioxide 27 mmol/L (22-32); Chloride 105 mmol/L (98-107); Creatine Kinase 90 U/L (55-170); Estimated Glomerular Filt Rate > 60.0 mL/min (>60); Globulin 3.1 g/dL (1.7-4.1); Glucose 99 mg/dL (80-110); HEMOLYSIS < 15 (0-50); Lipase 62 U/L (23-300); Magnesium 2.1 mg/dL (1.6-2.3); Potassium 4.5 mmol/L (3.4-5.1); Sodium 140 mmol/L (137-145); Total Protein 8.2 g/dL (6.3-8.2)
[2020-10-31 08:39] LABS: NT-proBNP (BNP-Adult 18+) 56 pg/mL (<125)
[2020-10-31 09:07] LABS: COVID19 - ADMIT (NP swab/PCR) Negative (Negative)
[2020-10-31 09:08] LABS: Troponin I 0.135 ng/mL (0.01-0.034)
[2020-10-31] MEDS: HEPARIN 5,000 UNIT/ML VIAL 5000 UNIT IV (09:09)
[2020-10-31] MEDS: HEPARIN DRIP 25,000 UNIT/500 ML IV.SOLN 20 UNIT IV (09:10)
[2020-10-31] MEDS: NITROGLYCERIN 0.4 MG SL TAB SL (09:25)
[2020-10-31] MEDS: NITROGLYCERIN 50 MG/250 ML INFUS..BTL IV (09:35)
[2020-10-31] MEDS: METOPROLOL IR 25 MG TABLET PO (10:22)
[2020-10-31] MEDS: ATORVASTATIN 20 MG TABLET 80 MG PO (10:22)
[2020-10-31 10:36] LABS: Troponin I 0.178 ng/mL (0.01-0.034)
[2020-10-31 15:29] LABS: PTT Partial Thromboplastin Tim 149 SECONDS (26.4-36.2)
[2020-10-31 15:33] LABS: Troponin I 0.265 ng/mL (0.01-0.034)
== END 2020-10-31 20:15 | disposition short-term general hospital (02) ==
PROVIDERS: Emergency Provider Emergency Medicine; PCP Family Medicine
DX: I21.4 Non-ST elevation (NSTEMI) myocardial infarction (principal); R06.02 Shortness of breath; R07.9 Chest pain, unspecified; Z20.822 Contact with and (suspected) exposure to COVID-19
CPT/HCPCS: 36415; 71045; 80053; 82550; 83690; 83735; 83880; 84484; 85025; 85610; 85730; 87635; 93005; 93010; 96365; 96366; 96368; 96375; 99285; 99291; C9803; J1644

== ENCOUNTER → 2020-12-09 09:17 | Outpatient (CLI) | payer MEDICARE, SELFPAY ==
--- NOTE | 2020-12-09 09:19 | DI.RAD.S_ITS ---
PROCEDURE: XR TOE RT MIN 2V INDICATIONS: PAIN TECHNIQUE: AP view of the foot and two views of the great toe acquired. COMPARISON: [facility], , XR TOE RT MIN 2V, 03/27/2018, 14:59. FINDINGS: Bones: No acute fractures or dislocations. No suspicious bony lesions. Severe degenerative changes are again seen at the first metatarsophalangeal joint, which have mildly progressed. There is mild hallux valgus. Soft tissues: No suspicious soft tissue densities. IMPRESSION: 1. 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 2. Mild hallux valgus. Dictated by: Erick Jimenez M.D. on 12/09/2020 at 12:04 Approved by: Erick Jimenez M.D. on 12/09/2020 at 12:08
== END ==
PROVIDERS: PCP Family Medicine; Referring Provider Family Medicine; Visit Provider Family Medicine
DX: M79.674 Pain in right toe(s) (principal); M19.071 Primary osteoarthritis, right ankle and foot; M20.11 Hallux valgus (acquired), right foot
CPT/HCPCS: 73660

== ENCOUNTER 2021-02-20 10:58 | Emergency (ER) | payer MEDICARE, SELFPAY ==
[2021-02-20] VITALS (7 sets, daily range): BP systolic 124–182; BP diastolic 63–84; PULSE 53–62; RESP 12–20; TEMP 36.7; O2SAT 93–98; BMI 26.4
--- NOTE | 2021-02-20 11:03 | DI.RAD.S_ITS ---
PROCEDURE: XR CHEST 1V INDICATIONS: chest pain TECHNIQUE: One view of the chest was acquired. COMPARISON: Located Within [facility], , CHEST 2 VIEW, 05/15/2014, 18:23. Located Within [facility], , XR CHEST 2V, 03/11/2019, 12:43. Located Within [facility], CR, XR CHEST 1V, 10/31/2020, 8:05. FINDINGS: Surgical changes and devices: Since the prior chest plain film, a single lead AICD has been placed, with the lead a seen in the expected location. Lungs and pleura: Lungs are clear. No pleural effusions or pneumothorax. Mediastinum: Mediastinal contours appear normal. Heart size is normal. Bones and chest wall: No suspicious bony lesions. Remote left lateral rib fractures are seen. Overlying soft tissues appear unremarkable. IMPRESSION: No acute cardiopulmonary process is seen. Postoperative and degenerative changes are seen. Dictated by: James Jewell M.D. on 02/20/2021 at 10:34 Approved by: James Jewell M.D. on 02/20/2021 at 10:35
--- NOTE | 2021-02-20 11:16 | ED.CHESTPAIN ---
HPI - Chest Pain General Chief Complaint: Chest Pain Stated Complaint: chest pain for last 2&1/2 days, hx heart issues Time Seen by Provider: 02/20/21 11:07 Source: patient Mode of arrival: Family Vehicle Limitations: no limitations History of Present Illness HPI narrative: Patient is a 70-year-old male. Last year had multiple episodes of chest discomfort requiring workup. He initially was seen in had a stress test. Subsequent cardiac catheterization showed no significant abnormalities. Was placed on medications. Several months later had other episodes. Was subsequently transferred from this department to [facility]. While he was there had a another cardiac catheterization which again showed no significant stenosis. It was determined that he was having vasospasms. ICD was placed. He has not had any issues since then. For approximately 48 hours he has had left-sided chest pressure. Has been constant for 48 hours. It is different than the chest discomfort that he was having last year. He initially thought that it was a pulled muscle his he initially noticed it after spending a day duck hunting. He did take a nitro at home which did not change any of his symptoms. Is not radiating anywhere. Not worse with palpation or movement. Potentially somewhat worse with a deep breath. Related Data Home Medications Medication Instructions Recorded Confirmed diclofenac sodium 100 mg 100 mg PO BID PRN 03/19/19 10/31/20 tablet,extended release 24 hr (Voltaren-XR) omeprazole 40 mg capsule,delayed 40 mg PO QAM 03/19/19 10/31/20 release Lactobacillus 2 cap PO DAILY 10/31/20 10/31/20 acidophilus-Bifidobac.animalis 10 billion cell capsule (Digestive Probiotic) amino ac-vit U-Te-vakquwpi-hb9 1 tab PO QAM 10/31/20 10/31/20 tablet ascorbic acid 1,000 1 ea PO QAM 10/31/20 10/31/20 xs-lgwsfijvkqjv-yzxpnqtp powder effervescent pack (Emergen-C) aspirin 81 mg tablet 81 mg PO QAM 10/31/20 10/31/20 docosahexaenoic acid (dha)-epa 1 cap PO DAILY 10/31/20 10/31/20 capsule folic acid 800 mcg tablet 0.8 mg PO QAM 10/31/20 10/31/20 ginkgo biloba 40 mg tablet 40 mg PO QAM 10/31/20 10/31/20 glucosamine sulf dipot 1 cap PO QAM 10/31/20 10/31/20 chlr,msm,chond 550 mg-C 30 mg-savita 1 mg capsule (Glucosamine Chondroitin) isosorbide mononitrate 60 mg 60 mg PO QAM 10/31/20 10/31/20 tablet,extended release 24 hr magnesium 200 mg tablet 400 mg PO QAM 10/31/20 10/31/20 multivitamin with minerals 1 tab PO QAM 10/31/20 10/31/20 nitroglycerin 0.4 mg sublingual 0.4 mg SUBLINGUAL TID PRN 10/31/20 10/31/20 tablet rosuvastatin 20 mg tablet 20 mg PO BEDTIME 10/31/20 10/31/20 Allergies Allergy/AdvReac Type Severity Reaction Status Date / Time No Known Drug Allergies Allergy Verified 02/20/21 11:06 Review of Systems Constitutional Constitutional: Denies fever(s) and Denies headache(s) ENT Ears, Nose, Mouth, and Throat: Denies headache(s) Cardiovascular Cardiovascular: Reports chest pain, Denies chest pain with activity, Denies rapid heart rate and Denies dyspnea Respiratory Respiratory: Denies cough and Denies dyspnea Gastrointestinal Gastrointestinal: Denies abdominal pain, Denies nausea and Denies vomiting Musculoskeletal Musculoskeletal: Reports system reviewed and no additional complaints, except as documented Integumentary/Breasts Skin/Breast: Reports system reviewed and no additional complaints, except as documented Neurologic Neurologic: Denies headache(s) Endocrine Endocrine: Reports system reviewed and no additional complaints, except as documented Hematologic/Lymphatic On Anticoagulants: No Allergic/Immunologic Allergic/Immunologic: Reports system reviewed and no additional complaints, except as documented Patient History Medical History Coronary artery vasospasm Social History household members: spouse Smoking Status: Never smoker alcohol intake: current Smoking Status: Never smoker alcohol intake frequency: a few times a week Substance Use Type: does not use Exam Initial Vital Signs Initial Vital Signs: Vital Signs Temperature 98.0 F 02/20/21 11:06 Pulse Rate 62 02/20/21 11:06 Respiratory Rate 19 02/20/21 11:06 Blood Pressure 182/84 H 02/20/21 11:06 Pulse Oximetry 98 02/20/21 11:06 Const General: cooperative, healthy appearing and comfortable [facility] Head: normal to inspection and normocephalic Resp Effort & Inspection: normal respiratory effort Auscultation: clear to auscultation bilaterally Cardio Rate: regular rate Rhythm: regular rhythm GI Inspection: normal to inspection Skin General: no rashes or lesions noted Neuro General: patient alert, patient awake, patient oriented x3 and moves all extremities Extrem General: normal to inspection and capillary refill normal Psych Appearance: grossly normal and well kempt Course Orders Ordered: ED Orders 02/20/21 11:03 XR chest 1V Stat EKG-12 Lead Stat 02/20/21 11:20 Complete Blood Count AUTO DIFF Stat Comprehensive Metabolic Panel Stat Lipase Stat Magnesium Stat Partial Thromboplastin Time Stat Prothrombin Time INR Stat Troponin & CK Cardiac Panel Stat Nitroglycerin (Nitroglycerin 0.4 Mg Sl Tab) 0.4 mg SL [id number] PRN PRN Reason: Chest Pain Discontinued Medications Aspirin (Aspirin 81 Mg Chew Tab) 324 mg PO NOW ONE Stop: 02/20/21 11:03 Last Admin: 02/20/21 11:27 Dose: 243 mg Documented by: ESTEFANÍAW Vital Signs Vital signs: Vital Signs - 8 hr 02/20/21 11:06 Temperature 98.0 F Pulse Rate 62 Respiratory Rate 19 Blood Pressure 182/84 H Pulse Oximetry 98 MDM - Chest Pain Medical Records Data Attestation: I reviewed the patient's medical records. Lab Data Attestation: I reviewed the patient's lab results. Result diagrams: 02/20/21 11:20 02/20/21 11:20 Labs: Lab Results 02/20/21 02/20/21 02/20/21 Range/Units 11:20 11:20 11:20 WBC 6.7 (4.5-11.0) X10^3/uL RBC 5.28 (4.5-5.9) X10^6/uL Hgb 15.1 (13.5-17.5) g/dL Hct 44.9 (41-53) % MCV 85.1 (80-100) fL MCH 28.6 (26-34) PG MCHC 33.6 (30-36) % RDW 14.1 (11.6-14.8) % Plt Count 245 (150-400) X10^3/uL Neut % (Auto) 62.7 (50-75) % Lymph % (Auto) 26.6 (25-40) % [place] % (Auto) 7.6 (3-14) % Eos % (Auto) 2.4 (2-4) % Baso % (Auto) 0.7 (0-2) % Neut # (Auto) 4200 (4778-7524) /uL Lymph # (Auto) 1800 (9087-3065) /uL [place] # (Auto) 500 (0-900) /uL Eos # (Auto) 200 (0-450) /uL Baso # (Auto) 0 (0-100) /uL PT 11.3 (10.1-12.7) SECONDS INR 1.0 (0.9-1.3) APTT 42 H D (26.4-36.2) SECONDS Sodium 140 (137-145) mmol/L Potassium 4.3 (3.4-5.1) mmol/L Chloride 103 (98-107) mmol/L Carbon Dioxide 32 (22-32) mmol/L BUN 18 (9-20) mg/dL Creatinine 1.15 (0.66-1.25) mg/dL Estimated GFR > 60.0 (>60) mL/min BUN/Creatinine Ratio 15.7 (6-22) Glucose 96 (80-110) mg/dL Calcium 10.0 (8.4-10.2) mg/dL Magnesium 2.2 (1.6-2.3) mg/dL Total Bilirubin 1.0 (0.2-1.3) mg/dL AST 26 (17-59) IU/L ALT 28 (<50) IU/L Alkaline Phosphatase 57 (38-126) U/L Total Creatine Kinase 52 L (55-170) U/L CK-MB (CK-2) TNP CK-MB (CK-2) Rel Index TNP Troponin I < 0.012 (0.01-0.034) ng/mL Total Protein 7.9 (6.3-8.2) g/dL Albumin 5.0 (3.5-5.0) g/dL Globulin 2.9 (1.7-4.1) g/dL Albumin/Globulin Ratio 1.7 (1.0-2.8) Lipase 51 (23-300) U/L Imaging Data Chest x-ray: Radiologist's Impression: [address] [address] XRay Report Signed Patient: Dameon Bobby MR#: [id number] : 1950 Acct:[id number] Age/Sex: 70 / M Date of Service: 02/20/21 Loc: ED Accession Number: [id number] ?? Procedure: XR chest 1V Ordering Provider: Chad Garcia D.O. PROCEDURE:? XR CHEST 1V ? INDICATIONS:? chest pain ? TECHNIQUE:? One view of the chest was acquired.? ? COMPARISON:? [facility], , CHEST 2 VIEW, 05/15/2014, 18:23.? [facility], CR, XR CHEST 2V, 03/11/2019, 12:43.? [facility], CR, XR CHEST 1V, 10/31/2020, 8:05. ? FINDINGS:? ? Surgical changes and devices:? Since the prior chest plain film, a single lead AICD has been placed, with the lead a seen in the expected location. ? Lungs and pleura:? Lungs are clear.? No pleural effusions or pneumothorax.? ? Mediastinum:? Mediastinal contours appear normal.? Heart size is normal.? ? Bones and chest wall:? No suspicious bony lesions.? Remote left lateral rib fractures are seen.? Overlying soft tissues appear unremarkable.? ? ? IMPRESSION:? ? No acute cardiopulmonary process is seen.? ? Postoperative and degenerative changes are seen.? ? ? Dictated by: James Jewell M.D. on 02/20/2021 at 10:34 ? ? Approved by: James Jewell M.D. on 02/20/2021 at 10:35? ECG Data Attestation: I personally reviewed and interpreted this ECG as follows: Interpretation: Sinus bradycardia Ventricular rate of 57 Normal axis Normal QRS Normal QTC No ST T wave changes MDM Narrative Medical decision making narrative: Patient with consistent symptoms over the past couple days with a negative troponin. The rest of his labs are unremarkable. Chest x-ray is unremarkable. No signs of pneumonia. Patient states that this does feel different than his prior cardiac issues last year. He has had reflux in the past. Is on omeprazole. He thinks that this somewhat feels like that. Had a discussion with him regarding the symptoms. I feel given his negative troponin and symptoms that he describes the patient can be safely discharged home. He was given strict return precautions and follow-up instructions. He expressed understanding and agreement. Discharge Plan Departure Patient Disposition: Home Clinical Impression: Atypical chest pain Instructions: DI for Atypical Chest Pain Activity Restrictions/Additional Instructions: Continue to take all of your medications as directed. Keep all of your scheduled medical appointments. Return to the emergency department for any new or worsening symptoms. Prescriptions: No Action diclofenac sodium [Voltaren-XR] 100 mg Tablet Extended Release 24 Hr 100 mg PO BID PRN (Reason: Pain (Scale Score 4-6)) 0RF omeprazole 40 mg Capsule,Delayed Release(Dr/Ec) 40 mg PO QAM 0RF isosorbide mononitrate 60 mg tablet extended release 24 hr 60 mg PO QAM 0RF ginkgo biloba [Ginkoba] 40 mg Tablet 40 mg PO QAM 0RF nitroglycerin 0.4 mg tablet, sublingual 0.4 mg sublingual TID PRN (Reason: Chest Pain) 0RF Rx Instructions: q 5-15 min x 3 prn chest pain Adult Low Dose Aspirin 81 mg Tablet 81 mg PO QAM 0RF multivitamin with minerals [All Purpose Multivitamin-Min] Tablet 1 tab PO QAM 0RF folic acid 800 mcg Tablet 0.8 mg PO QAM 0RF magnesium [magnesium gluconate] 200 mg Tablet 400 mg PO QAM 0RF EPA Fish Oil Capsule 1 cap PO DAILY 0RF rosuvastatin 20 mg tablet 20 mg PO BEDTIME 0RF Prostate Formula Tablet 1 tab PO QAM 0RF Emergen-C 1,000 mg Powder Effervescent In Packet 1 ea PO QAM 0RF Digestive Probiotic 10 billion cell Capsule 2 cap PO DAILY 0RF Glucosamine Chondroitin 550-30-1 mg Capsule 1 cap PO QAM 0RF Referrals: Kalyn Gifford MD [Primary Care Provider] -
--- NOTE | 2021-02-20 11:16 | PC.NURSE ---
pt has an ICD 10/2020.
[2021-02-20] MEDS: ASPIRIN 81 MG CHEW TAB 324 MG PO (11:27)
[2021-02-20 11:45] LABS: Prothrombin Time 11.3 SECONDS (10.1-12.7)
[2021-02-20 11:46] LABS: Alanine Aminotransferase 28 IU/L (<50); Albumin Globulin Ratio 1.7 (1.0-2.8); Alkaline Phosphatase 57 U/L (38-126); Aspartate Aminotransferase 26 IU/L (17-59); BUN Creatinine Ratio 15.7 (6-22); Blood Urea Nitrogen 18 mg/dL (9-20); Carbon Dioxide 32 mmol/L (22-32); Chloride 103 mmol/L (98-107); Creatine Kinase 52 U/L (55-170); Estimated Glomerular Filt Rate > 60.0 mL/min (>60); Globulin 2.9 g/dL (1.7-4.1); Glucose 96 mg/dL (80-110); HEMOLYSIS < 15 (0-50); Lipase 51 U/L (23-300); Magnesium 2.2 mg/dL (1.6-2.3); Potassium 4.3 mmol/L (3.4-5.1); Sodium 140 mmol/L (137-145); Total Protein 7.9 g/dL (6.3-8.2)
[2021-02-20 11:48] LABS: PTT Partial Thromboplastin Tim 42 SECONDS (26.4-36.2)
[2021-02-20 11:57] LABS: Troponin I < 0.012 ng/mL (0.01-0.034)
[2021-02-20 12:03] LABS: Add Manual Diff / Slide Review NO; Basophils Absolute Auto 0 /uL (0-100); Basophils Percent Auto 0.7 % (0-2); Eosinophils Absolute Auto 200 /uL (0-450); Eosinophils Percent Auto 2.4 % (2-4); Hematocrit 44.9 % (41-53); Hemoglobin 15.1 g/dL (13.5-17.5); Lymphocytes Absolute Auto 1800 /uL (1100-4500); Lymphocytes Percent Auto 26.6 % (25-40); Mean Corpuscular HGB Conc 33.6 % (30-36); Mean Corpuscular Hemoglobin 28.6 PG (26-34); Mean Corpuscular Volume 85.1 fL (80-100); Monocytes Absolute Auto 500 /uL (0-900); Monocytes Percent Auto 7.6 % (3-14); Neutrophils Absolute Auto 4200 /uL (1500-7000); Neutrophils Percent Auto 62.7 % (50-75); Platelet Count 245 X10^3/uL (150-400); Red Blood Cell Count 5.28 X10^6/uL (4.5-5.9); Red Cell Distribution Width 14.1 % (11.6-14.8); White Blood Cell Count 6.7 X10^3/uL (4.5-11.0)
== END 2021-02-20 13:00 | disposition home or self-care (01) ==
PROVIDERS: Emergency Provider Emergency Medicine; PCP Family Medicine
DX: R07.89 Other chest pain (principal); Z95.810 Presence of automatic (implantable) cardiac defibrillator
CPT/HCPCS: 36415; 71045; 80053; 82550; 83690; 83735; 84484; 85025; 85610; 85730; 93005; 93010; 99284

== ENCOUNTER → 2022-05-24 08:09 | Outpatient (CLI) | payer MEDICARE, SELFPAY ==
--- NOTE | 2022-05-24 08:19 | DI.RAD.S_ITS ---
PROCEDURE: XR CHEST 2V INDICATIONS: ACUTE COUGH TECHNIQUE: 2 views of the chest were acquired. COMPARISON: [facility], CR, XR CHEST 1V, 02/20/2021, 11:21. [facility], CR, XR CHEST 1V, 10/31/2020, 8:05. FINDINGS: Surgical changes and devices: Intravenous ICD lead projects over the appropriate position. Lungs and pleura: Lungs are clear. No pleural effusions or pneumothorax. Peribronchial cuffing. Mediastinum: Mediastinal contours are normal. Heart size is normal. Bones and chest wall: No suspicious bony abnormalities. Soft tissues appear unremarkable. IMPRESSION: Peribronchial cuffing, typically indicating infectious or inflammatory bronchitis. Dictated by: Chandler Lanier M.D. on 05/24/2022 at 11:45 Approved by: Chandler Lanier M.D. on 05/24/2022 at 11:45
== END ==
PROVIDERS: PCP Family Medicine; Referring Provider Family Medicine; Visit Provider Family Medicine
DX: R05.1 Acute cough (principal); R06.02 Shortness of breath
CPT/HCPCS: 71046

== ENCOUNTER → 2022-07-11 07:57 | Outpatient (CLI) | payer MEDICARE, SELFPAY ==
--- NOTE | 2022-07-11 | DI.RAD.S_ITS ---
PROCEDURE: XR CHEST 2V INDICATIONS: ACUTE COUGH TECHNIQUE: 2 views of the chest were acquired. COMPARISON: [facility], CR, XR CHEST 2V, 05/24/2022, 8:37. FINDINGS: Surgical changes and devices: Left cardiac generator device with right ventricular AICD lead. Lungs and pleura: No consolidation identified. No pleural effusions or pneumothorax. Mediastinum: Mediastinal contours are unchanged. Heart size is at the upper limits of normal. Bones and chest wall: No suspicious bony abnormalities. Soft tissues appear unremarkable. IMPRESSION: No acute cardiopulmonary abnormality identified. Dictated by: Davide Palencia M.D. on 07/11/2022 at 8:14 Approved by: Davide Palencia M.D. on 07/11/2022 at 8:17
== END ==
PROVIDERS: PCP Family Medicine; Referring Provider Family Medicine; Visit Provider Family Medicine
DX: R05.1 Acute cough (principal); Z95.810 Presence of automatic (implantable) cardiac defibrillator
CPT/HCPCS: 71046

== ENCOUNTER → 2022-09-30 | Outpatient (CLI) | payer MEDICARE, SELFPAY ==
--- NOTE | 2022-09-30 | DI.CT.S_ITS ---
PROCEDURE: CT CHEST W CON INDICATIONS: Shortness of breath Chronic cough TECHNIQUE: After the administration of intravenous contrast, 5 mm thick sections acquired from the pulmonary apices to the posterior costophrenic angles. 1 mm axial lung, 5 mm thick coronal and sagittal reformats and 7 mm axial MIP were acquired. For radiation dose reduction, the following was used: automated exposure control, adjustment of mA and/or kV according to patient size. COMPARISON: [facility], , CT THORAX W/CONTRAST, 07/19/2001, 16:21. FINDINGS: Image quality: Excellent. Lungs and pleura: No acute air space opacities. No pleural effusions or pneumothorax. 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 Pleural plaques were present on the previous study from 21 years ago No findings suggesting pulmonary interstitial fibrosis. There is a 4 x 5.5 mm pulmonary nodule in the right lower lobe on image 216/3. Central and peripheral airways are patent and normal in caliber. Mediastinum: Heart size is normal. No pericardial effusion. Pacemaker. Mild coronary artery calcifications. No mediastinal or hilar adenopathy by size criteria. Thoracic aorta and central pulmonary arteries are normal in size. Esophagus is normal in caliber. No hiatal hernia. Bones and chest wall: No suspicious bony lesions. No vertebral body compression fractures. No axillary or supraclavicular adenopathy by size criteria. Thyroid gland is unremarkable . Abdomen: Mild diffuse hepatic steatosis. Visualized upper abdominal solid organs otherwise appear normal. Upper abdominal bowel loops are normal in caliber. IMPRESSION: 1. 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 Plaques were present on the study from 20 years ago 2. Solitary 4 x 5.5 mm pulmonary nodule, right lower lobe. 3. Mild diffuse hepatic steatosis. Comment: Recommend repeat CT in 12 months to document stability of that pulmonary nodule. Dictated by: Fitz Mayer M.D. on 09/30/2022 at 13:16 Approved by: Fitz Mayer M.D. on 09/30/2022 at 13:26
== END ==
LOC: CT 07:49
PROVIDERS: PCP Family Medicine; Referring Provider Family Medicine; Visit Provider Family Medicine
DX: J92.9 Pleural plaque without asbestos (principal); R91.1 Solitary pulmonary nodule; K76.0 Fatty (change of) liver, not elsewhere classified; R06.02 Shortness of breath; R05.3 Chronic cough
CPT/HCPCS: 71260; Q9967

== ENCOUNTER → 2022-10-20 07:22 | Outpatient (CLI) | payer MEDICARE, SELFPAY | PROVIDERS: PCP Family Medicine; Referring Provider Internal Medicine Critical Care Medicine; Visit Provider Internal Medicine Critical Care Medicine | DX: R06.02 Shortness of breath (principal); F17.210 Nicotine dependence, cigarettes, uncomplicated; J98.8 Other specified respiratory disorders | CPT/HCPCS: 94060; 94618; 94726; 94729 ==

== ENCOUNTER → 2023-01-20 07:46 | Outpatient (CLI) | payer MEDICARE, SELFPAY ==
--- NOTE | 2023-01-20 | DI.CT.S_ITS ---
PROCEDURE: CT CERVICAL SPINE WO CON INDICATIONS: SPINAL STENOSIS TECHNIQUE: Noncontrast 3 mm thick sections acquired from the skull base to the T4 level. Sagittal and coronal reformats were then constructed. For radiation dose reduction, the following was used: automated exposure control, adjustment of mA and/or kV according to patient size. COMPARISON: None. FINDINGS: Image quality: Excellent. Bones: No fractures or dislocations. Visualized superior ribs are intact. Hypertrophic facet joints and posterior disc osteophyte complex is noted resulting and moderate central stenosis and moderate right foraminal stenosis at C4-5, bilateral moderate foraminal stenosis and mild central stenosis at C5-6, and mild central stenosis at C6-7 Soft tissues: Prevertebral soft tissues are normal in thickness. No paravertebral hematomas. No apical pneumothoraces. IMPRESSION: Multilevel degenerative disc disease and arthropathy results in moderate central stenosis at C4-5 Approved by: Sammy Pierre M.D. on 01/20/2023 at 17:46
== END ==
PROVIDERS: PCP Family Medicine; Referring Provider Family Medicine; Visit Provider Family Medicine
DX: M50.321 Other cervical disc degeneration at C4-C5 level (principal); M47.812 Spondylosis without myelopathy or radiculopathy, cervical region; M48.02 Spinal stenosis, cervical region
CPT/HCPCS: 72125

== ENCOUNTER → 2023-07-28 07:34 | Outpatient (CLI) | payer MEDICARE, SELFPAY ==
[2023-07-28 08:26] LABS: Add Manual Diff / Slide Review NO; Basophils Absolute Auto 0 /uL (0-100); Basophils Percent Auto 0.8 % (0-2); Eosinophils Absolute Auto 200 /uL (0-450); Eosinophils Percent Auto 3.9 % (2-4); Hematocrit 44.5 % (41-53); Hemoglobin 14.8 g/dL (13.5-17.5); Lymphocytes Absolute Auto 2100 /uL (1100-4500); Lymphocytes Percent Auto 34.4 % (25-40); Mean Corpuscular HGB Conc 33.3 % (30-36); Mean Corpuscular Volume 87.1 fL (80-100); Monocytes Absolute Auto 500 /uL (0-900); Monocytes Percent Auto 7.8 % (3-14); Neutrophils Absolute Auto 3300 /uL (1500-7000); Neutrophils Percent Auto 53.1 % (50-75); Platelet Count 229 X10^3/uL (150-400); Red Cell Distribution Width 14.9 % (11.6-14.8); White Blood Cell Count 6.1 X10^3/uL (4.5-11.0)
[2023-07-28 09:22] LABS: Alanine Aminotransferase 25 IU/L (<50); Albumin 4.5 g/dL (3.5-5.0); Albumin Globulin Ratio 1.7 (1.0-2.8); Alkaline Phosphatase 53 U/L (38-126); Aspartate Aminotransferase 25 IU/L (17-59); BUN Creatinine Ratio 23.1 (6-22); Bilirubin Total 1.1 mg/dL (0.2-1.3); Blood Urea Nitrogen 21 mg/dL (9-20); Calcium 9.6 mg/dL (8.4-10.2); Carbon Dioxide 26 mmol/L (22-32); Chloride 108 mmol/L (98-107); Cholesterol 165 mg/dL (140-199); Estimated Glomerular Filt Rate > 60 mL/min (>60); Globulin 2.7 g/dL (1.7-4.1); Glucose 98 mg/dL (80-110); HDL Cholesterol 75 mg/dL (40-60); HEMOLYSIS < 15 (0-50); LDL Cholesterol Calculated 77 mg/dL (<100); Potassium 4.3 mmol/L (3.4-5.1); Sodium 139 mmol/L (137-145); Total Protein 7.2 g/dL (6.3-8.2); Triglycerides 67 mg/dL (35-150)
== END ==
PROVIDERS: PCP Family Medicine; Referring Provider Family Medicine; Visit Provider Family Medicine
DX: Z13.6 Encounter for screening for cardiovascular disorders (principal); I48.91 Unspecified atrial fibrillation; I20.1 Angina pectoris with documented spasm
CPT/HCPCS: 36415; 80053; 80061; 85025

== ENCOUNTER → 2023-10-24 07:25 | Outpatient (CLI) | payer MEDICARE, SELFPAY ==
[2023-10-24 09:17] LABS: HIV 1 & 2 Ab/Ag 4th Gen Combo NEGATIVE (NEGATIVE)
== END ==
LOC: LAB 07:26
PROVIDERS: PCP Family Medicine; Referring Provider Family Medicine; Visit Provider Family Medicine
DX: Z11.4 Encounter for screening for human immunodeficiency virus [HIV] (principal)
CPT/HCPCS: 36415; 87389

== ENCOUNTER → 2023-10-24 07:26 | Outpatient (CLI) | payer MEDICARE, SELFPAY ==
--- NOTE | 2023-10-24 07:27 | DI.RAD.S_ITS ---
PROCEDURE: XR CERVICAL SPINE 4V OR 5V INDICATIONS: NECK PAIN TECHNIQUE: 5 views of the cervical spine acquired. COMPARISON: CT, CT CERVICAL SPINE WO CON, 01/20/2023, 7:55. FINDINGS: Bones: No fractures or dislocations to the T1 level. multilevel degenerative disc space narrowing as well as uncovertebral arthropathy. There is moderate to severe foraminal narrowing on the left C4-5 C5-6, with most severe narrowing on the right at C3-4, C4-5. Oblique images demonstrate no bony foraminal stenoses. Soft tissues: No prevertebral soft tissue swelling. IMPRESSION: Multilevel disc and foraminal narrowing as above. Dictated by: Miri Dave M.D. on 10/24/2023 at 9:42 Approved by: Miri Dave M.D. on 10/24/2023 at 9:49
== END ==
PROVIDERS: PCP Family Medicine; Referring Provider Physical Medicine & Rehabilitation; Visit Provider Physical Medicine & Rehabilitation
DX: M48.02 Spinal stenosis, cervical region (principal); M54.2 Cervicalgia; Z11.4 Encounter for screening for human immunodeficiency virus [HIV]
CPT/HCPCS: 36415; 72050; 87389

== ENCOUNTER → 2023-10-25 10:43 | Outpatient (CLI) | payer MEDICARE, SELFPAY ==
--- NOTE | 2023-10-25 10:45 | DI.US.S_ITS ---
PROCEDURE: US ABD AORTA ANEURYSM SCREEN INDICATIONS: Former tobacco user, clinical suspicion of abdominal aortic aneurysm TECHNIQUE: Real-time scanning was performed of the aorta and proximal common iliac arteries, with image documentation. Six images. COMPARISON: None. FINDINGS: Aorta: Abdominal aorta is normal in caliber throughout its length and measures approximately: Proximal aorta: 2.1 cm diameter Mid aorta: 1.8 cm Distal aorta: 1.6 cm Iliacs: Proximal common iliac arteries are normal in caliber: Right common iliac artery proximal 1.1 cm Left common iliac artery proximal 1.2 cm IMPRESSION: No ultrasound evidence of abdominal aortic aneurysm. Dictated by: Rico Huddleston M.D. on 10/25/2023 at 12:52 Approved by: Rico Huddleston M.D. on 10/25/2023 at 12:55
== END ==
LOC: US 10:44
PROVIDERS: PCP Family Medicine; Referring Provider Family Medicine; Visit Provider Family Medicine
DX: Z87.891 Personal history of nicotine dependence (principal); Z13.6 Encounter for screening for cardiovascular disorders
CPT/HCPCS: 76706

== ENCOUNTER 2023-12-14 08:46 | Outpatient (CLI) | payer MEDICARE, SELFPAY ==
[2023-12-14] VITALS (10 sets, daily range): BP systolic 108–157; BP diastolic 62–92; PULSE 68–79; RESP 12–20; TEMP 36.3; O2SAT 95–99
--- NOTE | 2023-12-14 08:47 | DI.RAD.S_ITS ---
PROCEDURE: PAIN C/T INTERLAMINAR INJECT INDICATIONS: C6-7 translaminar FACUNDO COMPARISON: None. FINDINGS: Fluoroscopic spot filming was performed to verify placement of spinal needles at the C6-7 level(s), as labeled on the films. Appropriate location(s) of the needle tip(s) was confirmed by injection of iodinated contrast. IMPRESSION: Fluoro guidance was provided intraoperatively for C6-7 translaminar FACUNDO performed by ordering physician. Dictated by: Conor Richards M.D. on 12/14/2023 at 16:35 Approved by: Conor Richards M.D. on 12/14/2023 at 16:35
[2023-12-14] MEDS: MIDAZOLAM 2 MG/2 ML VIAL IV (10:22)
[2023-12-14] MEDS: DEXAMETHASONE 10 MG/ML VIAL 20 MG INJ (10:27)
[2023-12-14] MEDS: iopamidoL 15 ML VIAL 3 ML INJ (10:28)
[2023-12-14] MEDS: BUPIVACAINE 0.25% (PF) VIAL 2 ML INJ (10:28)
--- NOTE | 2023-12-20 16:51 | P.PCN_ITS ---
Date/Time/Diagnoses Date of procedure: 12/14/23 Time of procedure: 09:45 Pre-procedure diagnosis: 1. CERVICAL STENOSIS, 2. CERVICAL HNP WITH UPPER EXTREMITY RADICULAR FEATURES Post-procedure diagnosis: same Procedure Notes Procedure: 1. FLUORSCOPICALLY GUIDED CONTRAST CONTROLLED INTERLAMINAR EPIDURAL STEROID INJECTION - C6/7 TL FACUNDO Indications: Dameon is referred by Dr. Muñiz for treatment of Cervical HNP with Upper Extremity Paresthesias. Physician: Albert Howell Total Fluoroscopy time (seconds): 21 Total sedation minutes: 14 Complications: none Procedure in detail & Post-procedure care: FINDINGS Cervical Stenosis due to disc deterioration and nerve root irritation and nerve root irritation DESCRIPTION OF PROCEDURE Fluoroscopically guided, contrast-controlled C6/7 translaminar epidural steroid injection with conscious sedation. Following review of allergy and review of potential side effects and complications, including, but not necessarily limited to, infection, allergic reaction, local tissue breakdown, temporary as well as permanent nerve injury, stroke, paralysis, and possible , the patient indicated that patient understood and agreed to proceed. An informed consent document was signed by the patient, witnessed by a nurse, and placed in the patient's chart. Additionally, other treatment options including modalities, medications, and physical therapy were reviewed with the patient. After review of previous anaesthesic history and IV conscious sedation the patient was deemed safe to proceed with today?s procedure with IV conscious sedation as ASA class II designation. Safety time-out was performed to confirm patient ID, procedure to be performed and site of procedure. IV sedation was accomplished with a combination of 2mg of Versed was administered by the RN after DO order, titrated to patient comfort during the course of the procedure while the patient remained responsive to all verbal commands. In the prone position, following sterile prep and drape of the cervical region, the C6/7 translaminar space was identified fluoroscopically. The skin was anesthetized via a 25-gauge 1.5-inch needle with 1% lidocaine solution. At this point, a 25-gauge, 2.5-inch short bevel spinal needle was atraumatically introduced and advanced under fluoroscopic guidance into epidural space at the C6/7 translaminar space. Depth was confirmed on lateral view. Radiological data, including multiple fluoroscopic views of the cervical spine, reveal a spinal needle at the C6/7 translaminar space. Lateral views then show placement of the needle in the epidural space. Subsequent views show contrast material flowing superiorly and inferiorly in the epidural space. DSA fluoroscopy with live contrast injection, once again, confirmed no vascular or intrathecal uptake. At this point, using loss of resistance technique with saline and air, the epidural space was entered. Following negative aspiration, injection of approximately 1.5 cc of Isovue-200 with live fluoroscopy in the AP view confirmed epidural flow in the epidural space without vascular or intrathecal uptake observed. Subsequently, a test dose of 1 cc of 1% lidocaine solution was injected and patient was observed for two minutes without signs or symptoms of complications, including abdominal pain, shortness of breath, bilateral upper or lower extremity weakness, nausea and vomiting, prior to steroid injection. At this point, 2cc or 20mg of dexamethasone was then injected without incident. The patient tolerated the procedure well without signs or symptoms of c omplications prior to being transferred to the recovery area for further monitoring, The patient was then transferred to the recovery area where they were observed for an appropriate period of time after the injection. The patient reported a VAS score of 6 prior to the procedure and a post-procedure VAS of 0. POST OP INSTRUCTIONS The patient was provided a Pain Log to continue to record their response to the target-specific procedure prior to follow-up visit with the referring provider. Additionally, specific post-injection care instructions and a contact number to our office were provided if concerns arise regarding possible complications associated with the procedure are suspected.
== END 2023-12-14 11:05 | disposition home or self-care (01) ==
LOC: RAD 08:46
PROVIDERS: PCP Family Medicine; Referring Provider Physical Medicine & Rehabilitation; Visit Provider Physical Medicine & Rehabilitation
DX: M48.02 Spinal stenosis, cervical region (principal); M50.123 Cervical disc disorder at C6-C7 level with radiculopathy
CPT/HCPCS: 62321; 99152; J1100; J2250; J3490

== ENCOUNTER → 2024-01-23 07:41 | Outpatient (CLI) | payer MEDICARE, SELFPAY ==
--- NOTE | 2024-01-23 07:42 | DI.CT.S_ITS ---
PROCEDURE: CT CHEST WO CON INDICATIONS: Pulmonary nodule TECHNIQUE: Noncontrast 5 mm thick sections acquired from the pulmonary apices to the posterior costophrenic angles. 1 mm lung window, 5 mm thick coronal and sagittal and 7 mm axial MIP reformats were then acquired. For radiation dose reduction, the following was used: automated exposure control, adjustment of mA and/or kV according to patient size. COMPARISON: Located Within [facility], CT, CT CHEST W CON, 09/30/2022, 8:01 FINDINGS: Image quality: Diagnostic. Lower Neck: No enlarged lymph nodes. Thyroid: No thyroid nodules which require sonographic follow up, per consensus guidelines. Axillae: No enlarged lymph nodes. Chest Wall: Unremarkable. Left axillary pacer noted. Bones: Unremarkable. Lungs and Pleura: No pneumothorax or pleural effusions. Stable subpleural subcentimeter lung nodules bilaterally, some of which are calcified suggesting granulomas. New 6 mm rounded nodule right lower lobe (series 3 image number 196), not definitely calcified. Heart: Heart size is normal. No pericardial effusion. Thoracic Vessels: The aorta and pulmonary arteries demonstrate normal size. Mediastinum and [place]: No enlarged lymph nodes. Esophagus: No wall thickening. No hiatal hernia. Upper Abdomen: Visualized upper abdomen solid organs and bowel loops appear normal. IMPRESSION: New 6 mm rounded nodule right lower lobe noncalcified, nonspecific. Three-month follow-up noncontrast chest CT recommended to confirm stability. Stable bilateral subpleural subcentimeter lung nodules some of which are calcified compatible with granulomatous changes. Dictated by: Eric Jara M.D. on 01/23/2024 at 9:21 Approved by: Eric Jara M.D. on 01/23/2024 at 9:34
== END ==
PROVIDERS: PCP Family Medicine; Referring Provider Family Medicine; Visit Provider Family Medicine
DX: R91.8 Other nonspecific abnormal finding of lung field (principal)
CPT/HCPCS: 71250

== ENCOUNTER 2024-03-28 07:36 | Day surgery (SDC) | payer MEDICARE, SELFPAY ==
--- NOTE | 2024-03-28 | PATH_ITS ---
[facility] Accession Number: [id number] No. of containers..01 Tissue . 01 Material submitted: . colon - SIGMOID POLYPS . 01 Diagnosis: SIGMOID COLON POLYPS: Colonic mucosa with prominent benign lymphoid aggregate x2. Negative for dysplasia or malignancy. MRV 04/01/2024 1847 Local . 01 Electronically signed: . Tremaine De La Torre MD, PhD, Pathologist NPI- [id number] . 01 Gross description: . Received in formalin with two patient identifiers and sigmoid polyps, are two castellanos soft tissue fragments, both measuring 0.4 cm in greatest dimension, submitted in A1. ([id number]) /MRV 03/29/2024 1826 Local . 01 Pathologist provided ICD-10: K63.5 . 01 CPT . 468735 Specimen Comment: A courtesy copy of this report has been sent to [phone] Performed at: [address] [facility] [address], [place], [place] [id number] MD Flynn Zaldivar MD Phone: [phone]
[2024-03-28] MEDS: LACTATED RINGERS 1,000 ML 42 ML IV (08:11)
[2024-03-28 08:22] VITALS: BP 136/85; PULSE 82; RESP 16; TEMP 37.1; O2SAT 95
--- NOTE | 2024-03-28 08:38 | P.HP_ITS ---
History of Present Illness History of Present Illness Date Patient Seen: 03/28/24 Time Patient Seen: 08:38 Chief complaint: Colonoscopy Narrative: Pat is a 73-year-old man in for a colonoscopy. His last one was about 10 years ago and he had no polyps. He has been told he was diverticulosis. He stopped his Eliquis 3 days ago. [facility] Medical History Cervical radicular pain Lung infection (~2022) Neck pain (~1999) Shoulder pain Foot pain (~1999) Chronic back pain (~1994) Chicken pox (~1959) Vertigo (~2009) Recurrent sinusitis (~2013) Prostate disorder (~2003) Squamous cell skin cancer (~1999) Chronic foot pain GERD (gastroesophageal reflux disease) A-fib (~2022) Asbestos exposure Asthma, moderate Coronary artery vasospasm (~2020) Surgical History Anesthesia History of cataract removal with insertion of prosthetic lens (~2019) S/P placement of cardiac pacemaker (~2020) History of toe surgery Family History Father History of heart disease Brother Hypertension Diabetes mellitus Sister Hypertension Sister Cancer Grandfather Cancer Grandfather Cancer Grandmother History of heart disease Social History household members: spouse Smoking Status: Former smoker alcohol intake: current Meds Home Medications and Allergies Home Medications Medication Instructions Recorded Confirmed Type amino ac-vit T-Fu-hlhfuxst-hb9 1 tab PO QAM 10/31/20 03/28/24 History tablet ascorbic acid 1,000 1 ea PO QAM 10/31/20 03/28/24 History fi-bcbgayspehvr-coqlsdiq powder effervescent pack (Emergen-C) docosahexaenoic acid (dha)-epa 1 cap PO DAILY 10/31/20 03/28/24 History capsule folic acid 800 mcg tablet 0.8 mg PO QAM 10/31/20 03/28/24 History ginkgo biloba 40 mg tablet 40 mg PO QAM 10/31/20 03/28/24 History glucosamine sulf dipot 1 cap PO QAM 10/31/20 03/28/24 History chlr,msm,chond 550 mg-C 30 mg-savita 1 mg capsule (Glucosamine Chondroitin) isosorbide mononitrate 60 mg 60 mg PO QAM 10/31/20 03/28/24 History tablet,extended release 24 hr magnesium 200 mg tablet 400 mg PO QAM 10/31/20 03/28/24 History nitroglycerin 0.4 mg sublingual 0.4 mg sublingual TID PRN Chest 10/31/20 03/28/24 History tablet Pain apixaban 5 mg tablet (Eliquis) 5 mg PO BID 09/29/22 03/27/24 History metoprolol succinate 25 mg 25 mg PO BEDTIME 09/29/22 03/28/24 History tablet,extended release 24 hr omeprazole 40 mg capsule,delayed 40 mg PO DAILY #90 caps 07/20/23 03/28/24 Rx release rosuvastatin 20 mg tablet 10 mg (1/2 x 20 mg) PO BEDTIME #45 08/01/23 03/28/24 Rx tabs acetaminophen 500 mg oral powder 500 mg PO Q6H PRN Breakthrough Pain 11/08/23 03/28/24 History packet (Tylenol Extra Strength) isosorbide mononitrate 30 mg 30 mg PO DAILY 01/19/24 03/28/24 History tablet,extended release 24 hr Allergies Allergy/AdvReac Type Severity Reaction Status Date / Time No Known Drug Allergies Allergy Verified 03/28/24 08:17 Exam Vital Signs (past 8 hours): - 03/28/24 08:22 Temperature 98.8 F Pulse Rate 82 Respiratory Rate 16 Blood Pressure 136/85 Pulse Oximetry 95 Oxygen Delivery Method Room Air Oxygen Delivery Method Room Air Const General: No acute distress Assessment & Plan Assessment and plan (1) Colon cancer screening: Status: Acute Plan Colonoscopy Time-Based Coding :: [TOTAL MINUTES] spent with patient and on the chart (including review of chart, obtaining history, exam, reviewing outside data, placing orders, documenting exam and treatment plan, and counseling patient) on [DATE]. PROFEE Deputy Coroner Document charge(s): No
[2024-03-28 09:06] VITALS: BP 108/77; PULSE 79; RESP 16; TEMP 36.5; O2SAT 95
--- NOTE | 2024-03-28 09:10 | PM.OP.COLON ---
Operative Date/Time/Diagnoses Date of procedure: 03/28/24 Time of procedure: 09:10 Pre-op diagnosis: Colon cancer screening Post-op diagnosis: same Procedure & Clinicians Study performed: Colonoscopy Same procedure as scheduled: Yes Surgeon: Ronak Hawthorne Procedure Notes Procedure in detail: Surgeon: Ronak Hawthorne MD Anesthesia: Scooby Krause D.O. Procedure: The patient was brought to the endoscopy suite, placed in left lateral decubitus position. The patient was connected to monitoring devices. A time-out was performed. Sedation was administered. Once the patient was adequately sedated, a digital rectal exam was performed and was normal. The scope was then inserted and advanced to the cecum where the appendiceal orifice was identified and photographed. The scope was then slowly withdrawn over greater than 6 minutes. The mucosa was thoroughly inspected. There were 2 small polyps in the sigmoid colon removed with the Jumbo forceps. The scope was retroflexed in the rectum. No other abnormalities were found. The scope was straightened and removed. The patient was awakened and brought to recovery. Scope withdrawal time: 9 minutes Sedation time: 12 minutes EBL: 2 mL Findings: 2 small sigmoid polyps Post-procedure Disposition: PACU
[2024-03-28 09:11] VITALS: BP 112/72; PULSE 72; RESP 16; O2SAT 95
[2024-03-28 09:16] VITALS: BP 116/67; PULSE 72; RESP 15; TEMP 36.5; O2SAT 95
[2024-03-28 09:19] VITALS: BP 121/75; PULSE 76; RESP 16; TEMP 36.5; O2SAT 95
== END 2024-03-28 09:31 | disposition home or self-care (01) ==
PROVIDERS: PCP Family Medicine; Referring Provider Surgery; Visit Provider Surgery
PROC: 0DJD8ZZ Inspection of Lower Intestinal Tract, Via Natural or Artificial Opening Endoscopic (ICD-10-PCS; CPT 45378; principal; 2024-03-28 08:45)
DX: Z12.11 Encounter for screening for malignant neoplasm of colon (principal); K63.5 Polyp of colon
CPT/HCPCS: 45380; J2704

== ENCOUNTER → 2024-05-07 15:44 | Outpatient (CLI) | payer MEDICARE, SELFPAY ==
--- NOTE | 2024-05-07 15:55 | DI.CT.S_ITS ---
PROCEDURE: CT CHEST WO CON INDICATIONS: pulm nodule TECHNIQUE: Noncontrast 2.0-2.5 mm thick sections acquired from the pulmonary apices to the posterior costophrenic angles. 7 mm thick axial MIP and 5 mm coronal and sagittal reformats were then acquired. For radiation dose reduction, the following was used: automated exposure control, adjustment of mA and/or kV according to patient size. COMPARISON: [facility], CT, CT CHEST WO [facility], 01/23/2024, 8:00. FINDINGS: Image quality: Diagnostic. Thyroid: Within normal limits. Cardiac: Heart size within normal limits. No pericardial effusion. Left pacemaker lead terminating in the right ventricle. Moderate left anterior descending coronary artery calcifications. Aorta: Thoracic aortic diameter within normal limits. Pulmonary Artery: Main pulmonary artery diameter within normal limits. Lungs: No focal lung consolidation. Re-identified 5 mm right lower lobe superior segment solid nodule (3/194). Pleura: No pneumothorax or pleural effusion. Re-identified, scattered, bilateral pleural plaques (2/50). Airways: The trachea and mainstem bronchi are patent. Lymph Nodes: No mediastinal, hilar, or axillary lymphadenopathy. Esophagus: Mild fluid debris in the esophagus. Bones: No acute osseous abnormality. Diffuse idiopathic skeletal hyperostosis of the lower thoracic spine (6/66). Upper Abdomen: Hepatic steatosis. IMPRESSION: 1. No significant change in right lower lobe 5 mm solid pulmonary nodule. 2. Scattered bilateral pleural plaques, which can be seen with asbestos-related pleural disease or sequelae of prior pleural effusions/disease. 3. Hepatic steatosis. 4. Moderate left anterior descending coronary artery calcifications. 5. Fluid in the esophagus, suggestive of gastroesophageal reflux disease. Fleischner Society criteria for SOLID lung nodule followup. Nodule size (mm)Low-risk patientHigh-risk patient<6 (single or multiple)No routine followup.Optional CT at 12 months. 6-8 (single or multiple)CT at 6-12 months, then optional CT at 18-24 mo.CT at 6-12 months, then CT at 18-24 months. >8 (single)CT at 3 months, PET-CT, or biopsy. Same as for low-risk pts. >8 (multiple)CT at 3-6 months, then optional CT at 18-24 mo.CT at 3-6 months, then CT at 18-24 months. Fleischner Society criteria for SUB-SOLID lung nodule followup. Solitary pure ground-glass nodules<6 mm (ground glass or part solid)No followup needed. 6 mm or larger (ground glass)CT at 6-12 months to confirm persistence, then CT every 2 years until 5 years.6 mm or larger (part solid)CT at 3-6 months to confirm persistence, then annual CT until 5 years if unchanged and solid component remains <6 mm. Multiple sub-solid nodules<6 mmCT at 3-6 months, then CT consider at 2 & 4 years for high risk patients. [address] at 3-6 months. Subsequent management based on most suspicious lesions. Recommendations do not apply to lung cancer screening, patients with immunosuppression, or patients with known primary cancer. Dictated by: Nain Leahy M.D. on 05/07/2024 at 18:10 Approved by: Nain Leahy M.D. on 05/07/2024 at 18:16
== END ==
LOC: CT 15:46
PROVIDERS: PCP Family Medicine; Referring Provider Family Medicine; Visit Provider Family Medicine
DX: R91.1 Solitary pulmonary nodule (principal); I25.10 Atherosclerotic heart disease of native coronary artery without angina pectoris; K76.0 Fatty (change of) liver, not elsewhere classified; J92.9 Pleural plaque without asbestos; K22.9 Disease of esophagus, unspecified
CPT/HCPCS: 71250